=== PATIENT | female | born 1935 | race Caucasian/White ===

== ENCOUNTER 2017-11-02 07:28 | Observation (INO) | payer BC ==
[~2017-11-02] VITALS: Ht 172.7 cm; Wt 61.1 kg
[~2017-11-02 07:28] MED LIST: ALBU1AER9 INH; ASPI-461 PO; CALC250T8 PO; CHOL100010 PO; DIGO0.1267 PO; GABA1CAP PO; HYDR12.56 PO; HYDR1OIN TOP; LACTATED RINGER'S 1000ML 1,000 ML IV SCH; LISI20TA3 PO; METO50TA7 PO; OMEG12006 PO; PRED1SUS3
--- NOTE | 2017-11-02 08:21 | History & Physical Bridge Note ---
H&P Re-Evaluation Bridge Note: I have examined the patient, reviewed the History & Physical and in the interval since the performance of the History & Physical I have noted the following changes of clinical significance: No changes noted
--- NOTE | 2017-11-02 08:22 | Procedure Note ---
Pre-Mod Sedation Assessment General Date of Moderate Sedation: Nov 02, 2017. Review Cardiovascular: + bradycardia Abdomen: soft Lungs: lungs clear Airway Class: II Pre-Sedation Airway Assessment Oral Cavity: WNL Short Thick Neck: No Hx of Sleep Apnea: No Smoking Status: Never Smoker Mallampati Classification: Class II ASA Classification: Class II Procedure Planning Contraindications-for Mod Sed: None Yes Notes The planned sedation has been discussed with the patient and consent obtained. I have identified the patient, determined the appropriateness of sedation and have assessed the patient immediately prior to the procedure. All medicine(s) and interventions are by my order.
[2017-11-02] MEDS ORDERED: IBUP-103 PO (08:39)
[2017-11-02] MEDS ORDERED: ATOR-22 PO (08:39)
[2017-11-02 08:42] VITALS: BP 164/89; PULSE 82; TEMP 36.8; O2SAT 97; BMI 21.0
[2017-11-02] MEDS ORDERED: BUPIVACAINE 0.5 % 5 MG/1 ML MPF 30ML VIAL ONE (08:52)
[2017-11-02] MEDS ORDERED: LIDOCAINE HCL 1% 20 ML VIAL ONE (08:52)
[2017-11-02] MEDS ORDERED: BACITRACIN 50000 UNIT VIAL ONE (08:52)
[2017-11-02] MEDS ORDERED: MIDAZOLAM HCL 5 MG/ML 1 ML VIAL ONE ×2 (08:53→09:41)
[2017-11-02] MEDS ORDERED: FENTANYL CITRATE INJ 50 MCG/1 ML 2 ML VIAL ONE ×2 (08:54→09:40)
[2017-11-02] MEDS ORDERED: ALBUTEROL HFA 8 GM INHALER INH PRN (10:15)
--- NOTE | 2017-11-02 10:17 | Procedure Note ---
Post-Mod Sedation Assessment General Date of Moderate Sedation Nov 02, 2017. Vital Signs: Vital Signs Past 12 Hours Date Time Temp Pulse Resp B/P (MAP) Pulse Ox O2 Delivery O2 Flow Rate FiO2 11/02/17 08:42 36.8 82 18 164/89 (114) 97 Room Air Review - Discharge Criteria Vital Signs Stable: Yes Alert/Oriented/Conversant: Yes Returned to Baseline Mental St: Yes Nausea Absent/Minimal: Yes Pain/Discomfort/Absent/Minimal: Yes Normal/Baseline Respirations: Yes Active Bleeding?: No Pt Received D/C Instructions: N/A Prescriptions Given: None Specific Proced. D/C Criteria Distal Pulses Present (Cardiac: N/A Groin site assessed-Card Cath: N/A Voided Prior To Discharge: N/A Discharged Patients Adult Escort/Transportation: N/A
--- NOTE | 2017-11-02 10:17 | [facility] Post Operative Brief Note ---
Immediate Operative Summary Operative Date Nov 02, 2017. Pre-Operative Diagnosis intermittent chb Post-Operative Diagnosis same Procedure(s) Performed dual chamber rate responsive ppm under fluroscopic guidance with peripheral venogram Surgeon chery brenner Set Up Worker Surgeon(s) none Estimated Blood Loss <20cc Findings see official report Fluids (cc crystalloids) 300cc Specimens none Drains none Anesthesia 5mg versed and 125mcg fentantyl Complication(s) None Disposition PCU
--- NOTE | 2017-11-02 10:19 | Discharge Instructions ---
Discharge Instructions Date of Service Nov 02, 2017. Admission Reason for Admission: Complete Heart Block Discharge Discharge Diagnosis / Problem: intermittent complete heart block Discharge Goals Goal(s): Improve function Activity Recommendations Activity Limitations: as noted below Lifting Limitations: no more than 10 pounds (do not lift the left elbow over the left shoulder for 1 month; do not lift more than 10 pounds with the left arm for 2 weeks) Shower/Bathe: tomorrow Driving or Machine Use: resume 1 day after discharge . Instructions / Follow-Up Instructions / Follow-Up ACTIVITY RECOMMENDATIONS: * Do not raise affected arm over head for 4 weeks. SPECIAL CARE INSTRUCTIONS: * If bleeding occurs, apply direct pressure to area for 5 minutes. * Call your doctor if you have severe pain, fever, drainage or bleeding at site. * Keep dry for 24 hours. * Keep any scheduled doctor's appointment. * Implant Card - hand held device with website information given. SKIN IRRITATION: * You may experience some redness and/or swelling in the area where radiation was administered. If any skin irritation occurs, please contact your family physician. FOLLOW UP VISIT: Keep any scheduled doctor appointments. Current Hospital Diet Patient's current hospital diet: Regular Diet Discharge Diet Recommended Diet: Regular Diet Procedures Procedures Performed: dual chamber rate responsive ppm under fluroscopic guidance with peripheral venogram Pending Studies Studies pending at discharge: no Medical Emergencies . Who to Call and When: Medical Emergencies: If at any time you feel your situation is an emergency, please call 911 immediately. . Non-Emergent Contact Non-Emergency issues call your: Integration Assistant . . "Provider Documentation" section prepared by Lulú Randolph. . VTE Core Measure Inpt VTE Proph given/why not?: Treatment not indicated
--- NOTE | 2017-11-02 10:23 | Discharge Summary ---
Discharge Summary Date of Service Nov 02, 2017. 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 remote h/o breast cancer on right with radiation in 80s Procedures: dual chamber rate responsive permanent pacemaker with peripheral venogram under fluoroscopic guidance Medication Reconciliation Continued Medications: Albuterol Sulfate (Proair Hfa) 108 Mcg/ Aer 2 PUFFS INH QID PRN for Wheezing Aspirin (Aspirin) 81 Mg Tab 1 TAB PO QAM Atorvastatin (Lipitor) 20 Mg Tab 20 MG PO DAILY, TAB Calcium Citrate (Calcium Citrate) 250 Mg Tab 0.5 TAB PO QAM Cholecalciferol (Vitamin D) 1,000 Inter.unit Tab 1000 INTER.UNIT PO QAM, TAB Gabapentin (Neurontin) 100 Mg Cap 100 MG PO HS, CAP Hydrochlorothiazide (Hctz) 12.5 Mg Cap 12.5 MG PO Q2D, TAB Hydrocortisone (Topical) (Hydrocortisone) 1 % Oin 1 APPL TOP DAILY PRN for RASH Ibuprofen Tab (Advil) 200 Mg Tab 200 MG PO, TAB Lisinopril (Prinivil) 20 Mg Tab 0.5 TAB PO QAM, TAB Metoprolol Succ (Toprol Xl) (Toprol-Xl) 50 Mg Tabcr 50 MG PO BID, TAB [place]-3 Fatty Acids ([place]mar 3) 1 Cap Cap 1 CAP PO QAM Admission Information Physical Exam (per Admitting): aaox3, NAD Supple, No JVD Nrl S1/S2, no murmur cta b/l no w/r/r soft no edema b/l LE no focal deficits skin intact Hospital Course Pt admitted for elective permanent pacemaker due to intermittent CHB. Pt underwent procedure without any complications; monitored overnight and discharged home. Total time spent on discharge = 30 minutes This includes examination of the patient, discharge planning, medication reconciliation, and communication with other providers. Discharge Instructions ACTIVITY RECOMMENDATIONS: * Do not raise affected arm over head for 4 weeks. SPECIAL CARE INSTRUCTIONS: * If bleeding occurs, apply direct pressure to area for 5 minutes. * Call your doctor if you have severe pain, fever, drainage or bleeding at site. * Keep dry for 24 hours. * Keep any scheduled doctor's appointment. * Implant Card - hand held device with website information given. SKIN IRRITATION: * You may experience some redness and/or swelling in the area where radiation was administered. If any skin irritation occurs, please contact your family physician. FOLLOW UP VISIT: Keep any scheduled doctor appointments.
[2017-11-02] MEDS ORDERED: CEFAZOLIN 1000MG IV PUSH 5 ML IV SCH (10:30)
[2017-11-02 10:41] VITALS: BP 174/94; PULSE 79; TEMP 36.4; O2SAT 96; Ht 172.7 cm; Wt 61.1 kg
--- NOTE | 2017-11-02 11:53 | OPERATIVE REPORT ---
DATE OF OPERATION: 11/02/2017 PREOPERATIVE DIAGNOSIS: Intermittent complete heart block. POSTOPERATIVE DIAGNOSIS: Same. PROCEDURE: Dual chamber rate responsive permanent pacemaker under fluoroscopic guidance along with peripheral venogram. SURGEON: Dr. Lulú Randolph. PROGRAM TRAINER: None. ANESTHESIA: Monitored conscious sedation administered by Harley Barlow under my supervision. Start time 09:04 and end time 10:10. Total of 5 mg of Versed and 125 mcg of fentanyl. INTRAVENOUS FLUIDS: 200 mL. BLOOD LOSS: Less than 20 mL. ANTIBIOTICS: 1 g of Ancef. COMPLICATIONS: None. CONDITION: Stable. URINE OUTPUT: Not applicable. SPECIMENS: None. FINDINGS: See below. DRAINS: None. INDICATIONS: This is a 81-year-old female with a past medical history for right retinal artery occlusion in the fall of 2016, remote history of breast cancer on the right side status post radiation back in the and most recently telephone betting clerk that showed intermittent complete heart block. Due to her intermittent complete heart block, she was recommended dual chamber permanent pacemaker. CONSENT: Consent was obtained prior to the patient going into the electrophysiology lab. The patient was informed of risks, benefits and alternatives to the procedure. Risks include, but not limited to sudden cardiac , cardiac arrhythmias, cerebrovascular accident, myocardial infarction, injury to the blood vessels, chamber of the heart, the lungs, bleeding and infection. The patient understood these risks and agreed to the procedure as planned. Informed consent was obtained. DESCRIPTION OF THE PROCEDURE: The patient was brought into the electrophysiology lab in a fasting state. She was connected to continuous telephone betting clerk. A timeout was performed to ensure the patient's identity and procedure correctly. The patient was prepped and draped over the left infraclavicular space in normal surgical standard fashion. Moderate conscious sedation was given throughout the procedure for the patient's comfort level. [place] precautions were maintained throughout the procedure. 20 mL of 1% lidocaine and bupivacaine mixture were given in left deltopectoral groove. Incision made in the left deltopectoral groove. Blunt dissection was performed down to identify the cephalic vein; however, none could be identified. So, peripheral venogram using 10 mL of IV contrast diluted in 10 mL of saline followed by a 20 mL flush was used to identify the axillary vein. The axillary vein was then accessed with the needle stick and a guidewire was inserted without any resistance. An 8-[place] sheath was inserted over the guidewire. The dilator was removed and a second guidewire was inserted through the 8-[place] sheath. The sheath was removed, flushed and dilator reinserted over it and then it was reinserted over one of the guidewire. The guidewire and dilator were removed. The right ventricular pacing lead was then advanced into right ventricle and positioned into the right ventricular apex under fluoroscopic guidance. There was adequate pacing and sensing thresholds and no diaphragmatic stimulation with high output pacing. The 8-[place] sheath was peeled away and lead was fixated to pectoralis muscle using 0 silk suture. A second 8-[place] sheath was inserted over the retained guidewire without any resistance. The guidewire and dilator were removed. The right atrial lead was positioned into the right atrial appendage under fluoroscopic guidance. The initial position had low P waves and some high amplitude R waves. So, the lead was repositioned a little higher into the right atrial appendage under fluoroscopic guidance. There was adequate pacing and sensing thresholds and no diaphragmatic stimulation at high output pacing. The 8-[place] sheath was peeled away and lead was fixated to pectoralis muscle using 0 silk suture. An additional 5 mL of 1% lidocaine and bupivacaine mixture were given within the pectoralis fascia. Using blunt dissection within the pectoralis fascia over the pectoralis muscle, a pacemaker pocket was created. The pocket was flushed with copious amounts of bacitracin saline wash and inspected for hemostasis. The pulse generator was then attached to the leads, making sure that the pins were in appropriate position, passed the set screws and the set screws were all tightened. The pulse generator was then placed in the pocket, making sure that the leads were lying flat beneath the device. A stay stitch using 0 silk suture was used to secure the device in the pectoralis muscle. Rosalina stat was placed in the pocket due to some back oozing. Then, the incision was closed in a 3-layer fashion using 2-0 Vicryl interrupted suture followed by a 3-0 Vicryl interrupted suture followed by a 4-0 Monocryl running stitch and Dermabond followed by a pressure dressing was applied. EQUIPMENT: 1. Pulse generator is a [employer] Godwin Camara [id number], serial #[id number]. 2. Right atrial lead, Medtronic 5076-52 cm, serial #[id number]. 3. Right ventricular lead, Medtronic 5076-58 cm, serial #[id number]. INTRAOPERATIVE TESTIN. Right atrial lead: P waves 1.1 millivolts, impedance 540 ohms, threshold 0.8 volts at 2.6 milliamps. 2. Right ventricular lead: R waves 14.6 millivolts, impedance 951 ohms, threshold 0.5 volts at 0.7 milliamps. FINAL MEASUREMENTS THROUGH THE DEVICE: 1. Right atrial lead: P waves 1.1 millivolts, impedance 475 ohms, threshold 0.75 volts at 0.4 milliseconds. 2. Right ventricular lead: R waves 20 millivolts, impedance 665 ohms, threshold 0.75 volts at 0.4 milliseconds. FINAL PARAMETERS: MVP-R 60/120. Right atrial amplitude 3.5 volts, pulse width 0.4 milliseconds, and sensitivity 0.3 millivolts. Right ventricular amplitude 3.5 volts, pulse width 0.4 milliseconds, and sensitivity 0.9 millivolts. IMPRESSION: Successful implantation of a dual chamber rate responsive permanent pacemaker under fluoroscopic guidance along with peripheral venogram secondary to intermittent complete heart block. PLAN: Monitor the patient overnight, 12-lead ECG, and chest x-ray. She is not to lift the left elbow or left shoulder for 1 month. She cannot lift the left arm for more than 10 pounds for 2 weeks. She can shower tomorrow, let water run over the incision, and do not scrub it. She should follow up in our [facility] for device and wound check in 1 week's time. I attest to the content of the Intraoperative Record and any orders documented therein. Any exception s are noted below.
[2017-11-02 12:00] VITALS: BP 168/89; PULSE 75; TEMP 36.6; O2SAT 96; O2SAT 97
[2017-11-02] MEDS ORDERED: HYDROCHLOROTHIAZIDE 25 MG TAB PO SCH (12:00)
[2017-11-02] MEDS ORDERED: IV FLUIDS COMPLETED PRN (12:45)
[2017-11-02 16:00] VITALS: O2SAT 96
[2017-11-02 16:30] VITALS: BP 163/83; PULSE 80; TEMP 36.7; O2SAT 95
[2017-11-02 19:26] VITALS: BP 153/81; PULSE 80; TEMP 36.8; O2SAT 94
[2017-11-02] MEDS: METOPROLOL SUCC 50MG EXT REL TAB PO SCH (20:32)
[2017-11-02] MEDS: ACETAMINOPHEN 325 MG TAB PO PRN (20:33)
[2017-11-02] MEDS ORDERED: GABAPENTIN 100 MG CAP PO SCH (21:00)
[2017-11-03 00:10] VITALS: BP 151/88; PULSE 74; TEMP 36.5; O2SAT 99
[2017-11-03 03:53] VITALS: BP 116/75; PULSE 76; TEMP 36.9; O2SAT 99
--- NOTE | 2017-11-03 07:20 | DIAGNOSTIC IMAGING REPORT ---
CHEST 2 VIEWS ROUTINE HISTORY: 81 years-old Female EXACT TIME ORDERED Evaluate for pneumothorax and lead placement status post placement of a left pectoral pacer. COMPARISON: Chest CT 09/02/2016 TECHNIQUE: PA and lateral views of the chest FINDINGS: Cardiac silhouette is within normal limits. There is unchanged biapical, right upper lobe and right perihilar pleural-parenchymal scarring with postsurgical changes. Unchanged small right pleural effusion with right basilar scarring. Subsegmental scarring/atelectasis of left lung base is also unchanged. Cardiac silhouette is upper limits of normal in size. Status post placement of a left subclavian pacer device with leads overlying the right atrium and right ventricle. There is no evidence of a postprocedural pneumothorax. The leads appear intact. Bones of the chest appear grossly intact. Compression deformity of what appears to be L1 is age indeterminate. IMPRESSION: 1. Status post placement of a left subclavian pacer device with leads overlying the right atrium and right ventricle. No postprocedural pneumothorax identified. 2. Unchanged scarring of the lung apices, right perihilar distribution and right lung base with small right pleural effusion. The above report was generated using voice recognition software. It may contain grammatical, syntax or spelling errors. Electronically signed by: Jesse Mena M.D. 11/03/2017 7:18 AM Dictated Date/Time: 11/03/2017 7:16 AM
[2017-11-03] MEDS: METOPROLOL SUCC 50MG EXT REL TAB PO SCH (07:40)
[2017-11-03 07:55] VITALS: BP 149/88; PULSE 88; TEMP 36.7; O2SAT 96
[2017-11-03 08:00] VITALS: O2SAT 96
[2017-11-03] MEDS ORDERED: LISINOPRIL 10 MG TAB PO SCH (09:00)
[2017-11-03] MEDS ORDERED: ASPIRIN 81 MG ECTAB PO SCH (09:00)
[2017-11-03] MEDS ORDERED: CHOLECALCIFEROL 1000 INTER.UNIT TAB PO SCH (09:00)
[2017-11-03] MEDS ORDERED: ATORVASTATIN 20 MG TAB PO SCH (09:00)
[2017-11-03 10:08] VITALS: BP 149/88; PULSE 88; TEMP 36.7; O2SAT 96
[2017-11-03] MEDS: ACETAMINOPHEN 325 MG TAB PO PRN (10:21)
--- NOTE | 2017-11-03 10:33 | Cardiology Follow-Up ---
Subjective Subjective Date of Service: Nov 03, 2017. Pt evaluation today including: conversation w/ patient, physical exam, lab review Pain: minimal at incision site Review of Systems Constitutional: No fatigue Respiratory: No shortness of breath, No dyspnea on exertion Cardiac: No chest pain, No edema, No palpitations Objective Vital Signs Last Vital Signs Documentation Date Time Temp Pulse Resp B/P (MAP) Pulse Ox O2 Delivery O2 Flow Rate FiO2 11/03/17 10:08 36.7 88 18 96 Room Air 11/03/17 07:55 149/88 (108) Physical Exam: General Appearance: WD/WN, no apparent distress Eyes: bilateral eyes PERRL, bilateral eyes EOMI Neck: supple, no JVD Respiratory/Chest: lungs clear, normal breath sounds Cardiovascular: regular rate, rhythm, no edema, no JVD, no murmur Abdomen: soft Neurologic/Psychiatric: alert, oriented x 3 Skin: normal color (left pectoral incision intact, no hematoma mild ecchymosis) , warm/dry Assessment and Plan Impression: 1. Intermittent complete heart block s/p dual chamber ppm 11/02/2017 2. Retinal artery occlusion fall 2016 3. h/o breast cancer Plan: -Ok for discharge home today -Pt not allowed to lift the left elbow over the left shoulder for 1 month or lift the more than 10 pounds with the left arm for 2 weeks -F/u in our office for device and wound check in 1 week Discharge planning: home Medications: Medications Administered Medications (Trade) Dose Ordered Sig/Talya Route Start Time Stop Time Status Last Admin Dose Admin Midazolam HCl (Versed Inj) 5 mg STK-MED ONCE .ROUTE 11/02/17 08:53 11/02/17 08:54 DC 11/02/17 08:53 5 MG Fentanyl Citrate (Fentanyl Inj) 100 mcg STK-MED ONCE .ROUTE 11/02/17 08:54 11/02/17 08:55 DC 11/02/17 08:54 100 MCG Fentanyl Citrate (Fentanyl Inj) 100 mcg STK-MED ONCE .ROUTE 11/02/17 09:40 11/02/17 09:41 DC 11/02/17 09:40 25 MCG Cefazolin Sodium 5 ml @ 1.667 mls/ min TODAY@1030 IV 11/02/17 10:30 11/03/17 10:29 11/02/17 10:26 1.667 MLS/MIN Lactated Ringer's 1,000 ml @ 15 mls/hr Q24H IV 11/02/17 06:00 11/03/17 05:59 DC 11/02/17 06:00 15 MLS/HR Acetaminophen (Tylenol Tab) 650 mg Q4H PRN PO 11/02/17 10:15 12/02/17 10:14 11/03/17 10:21 650 MG Aspirin (Ecotrin Tab) 81 mg QAM PO 11/03/17 09:00 12/03/17 08:59 11/03/17 07:41 81 MG Atorvastatin Calcium (Lipitor Tab) 20 mg DAILY PO 11/03/17 09:00 12/03/17 08:59 11/03/17 07:42 20 MG Cholecalciferol (Vitamin D Tab) 1,000 inter.unit QAM PO 11/03/17 09:00 12/03/17 08:59 11/03/17 07:41 1,000 INTER.UNIT Hydrochlorothiazide (Hydrochlorothiazide Tab) 12.5 mg Q2D@0800 PO 11/02/17 12:00 12/02/17 11:59 11/02/17 12:49 12.5 MG Lisinopril (Zestril Tab) 10 mg QAM PO 11/03/17 09:00 12/03/17 08:59 11/03/17 07:41 10 MG Metoprolol Succinate (Toprol Xl Tab) 50 mg BID PO 11/02/17 21:00 12/02/17 20:59 11/03/17 07:40 50 MG Lab Results: Telemetry:SR ECG: SR Pacemaker Interrogation Today: Stable lead testing from implant CXR: No PTX RA & RV leads in place
== END 2017-11-03 11:09 | disposition home or self-care (01) ==
LOC: C.ACU 07:28 → ENRESERV 09:56 → C.2T 10:15
PROVIDERS: ADMIT Internal Medicine; ATTEND Internal Medicine
DX: I44.2 Atrioventricular block, complete (principal); I65.29 Occlusion and stenosis of unspecified carotid artery; H34.11 Central retinal artery occlusion, right eye; Z85.3 Personal history of malignant neoplasm of breast; Z92.3 Personal history of irradiation; Z85.828 Personal history of other malignant neoplasm of skin; Z79.82 Long term (current) use of aspirin; J44.9 Chronic obstructive pulmonary disease, unspecified; Z87.01 Personal history of pneumonia (recurrent); Z83.3 Family history of diabetes mellitus; Z82.49 Family history of ischemic heart disease and other diseases of the circulatory system; Z82.0 Family history of epilepsy and other diseases of the nervous system; Z81.8 Family history of other mental and behavioral disorders; Z80.6 Family history of leukemia; Z91.81 History of falling

== ENCOUNTER → 2017-12-13 | Outpatient (CLI) | payer BC ==
[~2017-12-13] MED LIST changes: +ATOR-22 PO; -DIGO0.1267 PO; +IBUP-103 PO; -LACTATED RINGER'S 1000ML 1,000 ML IV SCH; -PRED1SUS3
--- NOTE | 2017-12-13 14:47 | MAMMOGRAPHY REPORT ---
UNILATERAL LEFT DIGITAL SCREENING MAMMOGRAM TOMOSYNTHESIS WITH CAD: 12/13/2017 CLINICAL HISTORY: Asymptomatic. Personal history of breast cancer. TECHNIQUE: Left b left breast reast tomosynthesis in addition to standard 2D mammography was perform ed. Additional left MLO and exaggerated medial CC 2-D views were performed to include more medial an d posterior tissue Current study was also evaluated with a Computer Aided Detection (CAD) system. COMPARISON: Comparison is made to exams dated: 12/11/2016 mammogram, 12/09/2015 mammogram, 12/07/2014 ma mmogram, 11/16/2013 mammogram, 11/15/2012 mammogram, and 11/12/2011 mammogram - [facility]. BREAST COMPOSITION: The tissue of the left breast is heterogeneously dense, which may obscure small masses. FINDINGS: A pacemaker projects over the left pectoralis muscle on the first MLO view. A linear scar marker overlies the medial left breast. There are benign-appearing rodlike and coarse calcifications . No new suspicious mass, architectural distortion or cluster of microcalcifications is seen. IMPRESSION: ACR BI-RADS CATEGORY 1: NEGATIVE There is no mammographic evidence of malignancy. A 1 year screening mammogram is recommended. The pa tient will receive written notification of the results. Approximately 10% of breast cancers are not detected with mammography. A negative mammographic report should not delay biopsy if a clinically suggestive mass is present. Elvie Restrepo M.D. ay/:12/13/2017 12:39:15 Manager Decision Support: Carlee Thornton, [facility] letter sent: Normal 1/2 BI-RADS Code: ACR BI-RADS Category 1: Negative
== END | disposition home or self-care (01) ==
LOC: C.MAMM 09:47
PROVIDERS: ATTEND Family Medicine
DX: Z12.31 Encounter for screening mammogram for malignant neoplasm of breast (principal)

== ENCOUNTER 2020-04-18 07:52 | Inpatient (IN) ==
--- NOTE | 2020-04-18 08:19 | Emergency Department Note ---
Impression & Plan CHF (congestive heart failure), Idiopathic cardiomyopathy, HTN (hypertension), Acute hypoxemic respiratory failure, Chronic bilateral pleural effusions ED Provider Note CHIEF COMPLAINT: Shortness of breath HISTORY OF PRESENTING ILLNESS: This is an 84-year-old female who presents to the emergency department with past medical history significant for idiopathic cardiomyopathy, complete heart block with a pacemaker, hypertension and hyperlipidemia, who presents to the emergency department by private vehicle with complaints of shortness of breath for the past 5 days. The patient states that her feelings of shortness of breath have been intermittent, but got much worse last night, she states "I did not sleep at all last night because I was afraid I would stop breathing, I felt like I had to remind myself to breathe. I was afraid I was going to if I went to sleep." She states she feels that her heart is racing at times. The shortness of breath is worse when she lies flat, better when she sits up or if she gets up and walks around, she denies any worsening of her shortness of breath with exertion. Patient states she has had some associated nausea, but denies any vomiting, diarrhea, bloody or black stools, or abdominal pain. She rates the nausea discomfort a 3/10. She denies any chest pain or back pain. She denies any cough, URI symptoms, fevers or chills, sick contacts or exposures concerning for COVID-19. She denies any swelling or pain in her legs. She denies any headaches, dizziness, or syncope. She denies any hemoptysis. REVIEW OF SYSTEMS: A complete 10 point review of systems was reviewed with the patient with pertinent positives and negatives as per history of present illness. All else were negative. PAST MEDICAL HISTORY: Idiopathic cardiomyopathy, complete heart block s/p pacemaker, hypertension, hyperlipidemia SOCIAL HISTORY: Lives at home with her , denies tobacco use ALLERGIES: Reviewed in chart PHYSICAL EXAM: CONSTITUTIONAL: Pleasant and cooperative. Nontoxic-appearing and in no acute distress, but appears slightly anxious. Well appearing and well nourished. HEENT: Normocephalic, atraumatic. PERRL, EOMI. Pharynx normal. NECK: Supple, full active range of motion without discomfort. No cervical adenopathy. RESPIRATORY: Diminished in the bases, but otherwise clear to auscultation bilaterally with no wheezing, crackles, rhonchi or stridor. Equal expansion bilaterally. CARDIOVASCULAR: Tachycardic, regular rhythm with no murmurs, rubs or gallops. Normal peripheral perfusion, 2+ distal pulses in all 4 extremities. No pitting edema. GASTROINTESTINAL: Soft, nontender, nondistended. No palpable masses or HSM. Bowel sounds present in all quadrants. MUSCULOSKELETAL: No tenderness or swelling in the calves. Negative Homans sign bilaterally. Full range of motion of all joints without discomfort. INTEGUMENTARY: No rash or other significant dermatologic conditions noted. NEUROLOGIC: Alert and oriented X 4 with normal affect. Normal strength and sensation in all 4 extremities. Normal speech. Normal gait observed. ED COURSE AND MEDICAL DECISION MAKING: CC: Patient presenting with complaint of shortness of breath DIFFERENTIAL DIAGNOSIS: Includes, but not limited to acute coronary syndrome, CHF/pulmonary edema, pulmonary embolism, pneumothorax, pericarditis, myocarditis, cardiac dysrhythmia, anxiety, pneumonia, among others. INTERPRETATION OF LABS: No leukocytosis, no anemia, normal platelets, hypergly cemia and mild hyponatremia/hypochloremia, no other significant electrolyte abnormalities, normal renal function, elevated T bili, otherwise normal liver enzymes. Coagulation factors within normal limits. VBG unremarkable. Significantly elevated pro-BNP. Marginally detectable troponin IMAGING: XR chest 1V portable CLINICAL HISTORY: 84 years-old Female presenting with Dyspnea. TECHNIQUE: Portable upright AP view of the chest was obtained. COMPARISON: 11/03/2017. FINDINGS: Left subclavian pacer with leads to the right atrium and right ventricular apex. Atherosclerosis of the aortic arch. Cardiac silhouette enlarged. Pulmonary vascular prominence. Heterogeneity of lung parenchyma. Extensive bibasilar and infrahilar opacities, right greater than left. Small bilateral pleural effusion s. No pneumothorax. Osseous structures normal. Upper abdomen normal. IMPRESSION: 1. Cardiomegaly with volume overload. 2. Bilateral pleural effusions and bibasilar atelectasis or consolidation. Un derlying infection not excluded. 3. Heterogeneity of underlying lung parenchyma suggest emphysema. EKG: Shows normal sinus rhythm with a rate of 97 bpm, left axis deviation, left bundle branch block, T wave inversions in the lateral leads appears worse when compared to previous EKG from 11/02/2017 by my interpretation. MEDICATION RECONCILIATION: I attest that I have personally reviewed the tenisha dunlap's current medication list. INITIAL VITAL SIGNS REVIEW: I reviewed the patient's initial vital signs and interpret them as follows: T: Afebrile; BP: Hypertensive; HR: Tachycardic; RR: Within normal limits; Pulse Ox: Within normal limits on room air. Blood pressure screening: The patient was found to have an elevated blood pressure and was referred to the inpatient team for further management. MDM SUMMARY: Patient was evaluated at bedside, history and physical exam performed. Patient is alert and oriented, in no acute distress, but appears slightly anxious, resting on the stretcher. She is afebrile and nontoxic-appearing, but is noted to be hypertensive and tachycardic. Patient was noted to be 90-91% on room air, she was placed on 2 L nasal cannula by myself. Lungs are diminished in the bases, but otherwise clear. Patient appears to have slightly labored breathing, but this appears to be improved while she is talking and she is able to speak in full sentences. No tachypnea or accessory muscle use. Cardiac monitoring: An order was placed for continuous cardiac monitoring. The monitor shows a rate of 112 bpm with sinus tachycardia rhythm. Heart sounds are normal. Normal peripheral perfusion, no edema. No calf tenderness. No travel or exposures concerning for COVID-19. Orders were placed at bedside for labs, UA, IV placement, EKG and chest x-ray to evaluate for shortness of breath. Patient discussed with Dr. Crouch, who agrees with my assessment, plan, and dis position. Labs and imaging reviewed as above, labs noting hyperglycemia and mild hyponatremia, and elevated T bili of unclear etiology, but other liver enzymes are normal. She is not acidotic, CO2 is normal. Marginally detectable troponin and a significantly elevated pro-BNP. EKG shows some worsening of T wave inversions when compared to previous. Chest x-ray appears consistent with volume overload, I suspect congestive heart failure as cause of her shortness of breath. Patient was given 40 mg IV Lasix. She has started to have good urine output, and has remained hemodynamically stable. Patient reassessed multiple times throughout ED stay, she states that her shortness of breath is feeling somewhat better. She remains on 2 L nasal cannula with sats of 94 to 95%. Spoke on the phone with the [facility] hospitalist team, who agreed to evaluate the patient for admission. The patient was updated on all results and plan for admission, all questions were answered at this time and she was comfortable with this plan. The chart was completed utilizing [employer] Speech voice recognition software. Grammatical errors, random word insertions, pronoun errors, and incomplete sentences are an occasional consequence of this system due to software limitations, ambient noise, and hardware issues. Any formal questions or concerns about the content, text, or information contained within the body of this dictation should be directly addressed to the nurse practitioner for clarification. Past Med/Surg History Medical History (Updated 04/18/20 @ 15:59 by JOSE Reyes) Acute hypoxemic respiratory failure (Acute) Breast cancer Cardiac pacemaker in situ Carotid stenosis, non-symptomatic Central retinal artery occlusion Chronic bilateral pleural effusions (Acute) Complete heart block H/O sigmoidoscopy HTN (hypertension) (Acute) Idiopathic cardiomyopathy (Acute) Radiation pneumonitis Surgical History H/O right mastectomy History of cardiac cath Family History Mother Cancer MM Father Parkinson disease Brother Hypertension Social History Preferred Language: Romanian Communication Ability: Effective Golf Course Designer Required: No Beliefs That Will Affect Care: None Current Living Situation: Spouse Other Information That Helps Us Care for You: No Feels Safe at Home: Yes Safety Concerns: Feels Safe At This Time Smoking Status: Never smoker Do You Dip or Chew Tobacco: No ; Second Hand Exposure: No ; Tobacco Cessation Education Requested by Patient: No Hx Alcohol Use: Yes Alcohol type: wine Hx Substance Use: No Allergies Allergies Allergy/AdvReac Type Severity Reaction Status Date / Time oxycodone Allergy Unknown "MADE ME Verified 04/18/20 08:44 FEEL BAD" codeine AdvReac Unknown VOMITING Verified 04/18/20 08:44 Home Meds Home Medications Medication Instructions Recorded Confirmed ascorbic acid (vitamin C) [Vitamin 500 mg PO DAILY 04/18/20 04/18/20 C] aspirin [Aspirin Low Dose] 81 mg PO DAILY 04/18/20 04/18/20 atorvastatin 20 mg PO HS 04/18/20 04/18/20 calcium carbonate-vitamin D3 1 tab PO BID 04/18/20 04/18/20 [Calcium 500 + D] cholecalciferol (vitamin D3) 1,000 unit PO DAILY 04/18/20 04/18/20 [Vitamin D3] gabapentin 100 mg PO HS 04/18/20 04/18/20 hydrochlorothiazide 12.5 mg PO Q OTHER DAY 04/18/20 04/18/20 lisinopril 10 mg PO DAILY 04/18/20 04/18/20 metoprolol succinate 100 mg PO QAM 04/18/20 04/18/20 Results & Data (ED) Vital Signs Vital Signs - 24 hr 04/18/20 07:56 04/18/20 08:11 04/18/20 08:12 Temperature 36.8 C Temperature Source Oral Pulse Rate 116 H Pulse Rate from SpO2 Sensor Respiratory Rate 20 Respiratory Effort / Characteristics Non-Labored Non-Labored Respiratory Depth Normal Respiratory Pattern Tachypnea Blood Pressure 173/110 H Blood Pressure Mean 131 Pulse Oximetry 91 Oxygen Delivery Method Room Air Nasal Cannula Nasal Cannula Sepsis Recent Fever Within 48 Hours No Sepsis New/Unexplained Change in Mental Status No Sepsis Action Taken by Nursing No Action Required 04/18/20 08:20 04/18/20 08:44 04/18/20 09:00 Temperature Temperature Source Pulse Rate 94 H 90 Pulse Rate from SpO2 Sensor 94 H 90 Respiratory Rate 25 H 21 Respiratory Effort / Characteristics Respiratory Depth Respiratory Pattern Blood Pressure Blood Pressure Mean Pulse Oximetry 93 92 Oxygen Delivery Method Nasal Cannula Sepsis Recent Fever Within 48 Hours Sepsis New/Unexplained Change in Mental Status Sepsis Action Taken by Nursing 04/18/20 09:34 04/18/20 10:00 04/18/20 10:10 Temperature Temperature Source Pulse Rate 106 H 99 H 98 H Pulse Rate from SpO2 Sensor 107 H 99 H 98 H Respiratory Rate 18 Respiratory Effort / Characteristics Respiratory Depth Respiratory Pattern Blood Pressure 167/109 H Blood Pressure Mean 140 Pulse Oximetry 93 94 Oxygen Delivery Method Sepsis Recent Fever Within 48 Hours Sepsis New/Unexplained Change in Mental Status Sepsis Action Taken by Nursing 04/18/20 10:30 04/18/20 11:00 04/18/20 11:30 Temperature Temperature Source Pulse Rate 109 H 111 H 107 H Pulse Rate from SpO2 Sensor 110 H 111 H 109 H Respiratory Rate 20 Respiratory Effort / Characteristics Respiratory Depth Respiratory Pattern Blood Pressure Blood Pressure Mean Pulse Oximetry 94 95 Oxygen Delivery Method Sepsis Recent Fever Within 48 Hours Sepsis New/Unexplained Change in Mental Status Sepsis Action Taken by Nursing Laboratory Data Result diagrams: 04/18/20 08:32 04/18/20 08:32 Lab Results 04/18/20 04/18/20 04/18/20 Range/Units 08:32 08:32 08:32 WBC 7.35 (4.8-10.8) K/uL RBC 4.72 (4.2-5.4) M/uL Hgb 15.0 (12.0-16.0) g/dL Hct 43.8 (37-47) % MCV 92.8 (80-100) fL MCH 31.8 (25-34) pg MCHC 34.2 (32-36) g/dL RDW Std Deviation 46.3 (36.4-46.3) fL RDW Coeff of Teresa 13.6 (11.5-14.5) % Plt Count 244 (130-400) K/uL MPV 8.9 (7.4-10.4) fL Immature Gran % (Auto) 0.3 % Neut % (Auto) 89.6 % Lymph % (Auto) 4.9 % Phillips % (Auto) 4.8 % Eos % (Auto) 0.3 % Baso % (Auto) 0.1 % Immature Gran # (Auto) 0.02 (0.00-0.02) K/uL Neut # (Auto) 6.59 H (1.4-6.5) K/uL Lymph # (Auto) 0.36 L (1.2-3.4) K/uL Phillips # (Auto) 0.35 (0.11-0.59) K/uL Eos # (Auto) 0.02 (0-0.5) K/uL Baso # (Auto) 0.01 (0-0.2) K/uL PT 10.8 (9.0-12.0) Seconds INR 1.0 (0.9-1.1) APTT 25.1 (21.0-31.0) Seconds PTT Ratio 0.9 VBG pH (7.36-7.41) VBG pCO2 (38-50) mmHg VBG pO2 mmHg VBG HCO3 mmol/L VBG O2 Saturation % VBG Base Excess mEq/L Barometric Pressure mm/Hg Sodium 131 L (136-145) mmol/L Potassium 4.3 (3.5-5.1) mmol/L Chloride 97 L (98-107) mmol/L Carbon Dioxide 25 (21-32) mmol/L Anion Gap 9.0 (3-11) BUN 17 (7-18) mg/dl Creatinine 0.82 (0.6-1.2) mg/dl Est Cr Clr Drug Dosing Not Reportable Est GFR ( Amer) 77.2 Est GFR (Non-Af Amer) 66.6 BUN/Creatinine Ratio 20.5 H (10-20) Glucose 182 H (70-99) mg/dl Calcium 8.5 (8.5-10.1) mg/dl Total Bilirubin 1.7 H (0.2-1) mg/dl AST 30 (15-37) U/L ALT 29 (12-78) U/L Alkaline Phosphatase 53 (45-117) U/L Troponin I 0.030 (0-0.045) ng/ml NT-Pro-B Natriuret Pep (0-1800) pg/ml Total Protein 7.5 (6.4-8.2) gm/dl Albumin 4.0 (3.4-5.0) gm/dl Globulin 3.5 (2.5-4.0) gm/dl Albumin/Globulin Ratio 1.1 (0.9-2) TSH (0.300-4.500) uIu/ml 04/18/20 04/18/20 04/18/20 Range/Units 08:32 09:41 09:41 WBC (4.8-10.8) K/uL RBC (4.2-5.4) M/uL Hgb (12.0-16.0) g/dL Hct (37-47) % MCV (80-100) fL MCH (25-34) pg MCHC (32-36) g/dL RDW Std Deviation (36.4-46.3) fL RDW Coeff of Teresa (11.5-14.5) % Plt Count (130-400) K/uL MPV (7.4-10.4) fL Immature Gran % (Auto) % Neut % (Auto) % Lymph % (Auto) % Phillips % (Auto) % Eos % (Auto) % Baso % (Auto) % Immature Gran # (Auto) (0.00-0.02) K/uL Neut # (Auto) (1.4-6.5) K/uL Lymph # (Auto) (1.2-3.4) K/uL Phillips # (Auto) (0.11-0.59) K/uL Eos # (Auto) (0-0.5) K/uL Baso # (Auto) (0-0.2) K/uL PT (9.0-12.0) Seconds INR (0.9-1.1) APTT (21.0-31.0) Seconds PTT Ratio VBG pH 7.40 (7.36-7.41) VBG pCO2 46 (38-50) mmHg VBG pO2 52 mmHg VBG HCO3 28 mmol/L VBG O2 Saturation 85.5 % VBG Base Excess 2.2 mEq/L Barometric Pressure 740.4 mm/Hg Sodium (136-145) mmol/L Potassium (3.5-5.1) mmol/L Chloride (98-107) mmol/L Carbon Dioxide (21-32) mmol/L Anion Gap (3-11) BUN (7-18) mg/dl Creatinine (0.6-1.2) mg/dl Est Cr Clr Drug Dosing Est GFR ( Amer) Est GFR (Non-Af Amer) BUN/Creatinine Ratio (10-20) Glucose (70-99) mg/dl Calcium (8.5-10.1) mg/dl Total Bilirubin (0.2-1) mg/dl AST (15-37) U/L ALT (12-78) U/L Alkaline Phosphatase (45-117) U/L Troponin I (0-0.045) ng/ml NT-Pro-B Natriuret Pep 9281 H (0-1800) pg/ml Total Protein (6.4-8.2) gm/dl Albumin (3.4-5.0) gm/dl Globulin (2.5-4.0) gm/dl Albumin/Globulin Ratio (0.9-2) TSH 1.310 (0.300-4.500) uIu/ml Administered Medications Discontinued Medications Furosemide (Lasix) 40 mg IV NOW STA Stop: 04/18/20 09:35 Last Admin: 04/18/20 10:08 Dose: 40 mg Documented by: [id number] Discharge Plan Visit Data *Final* Discharge Date/Time: 04/18/20 12:41 Chief Complaint: Shortness of Breath/Dyspnea Stated Complaint: SOB ED Provider: Homer Crouch ED Midlevel Provider: Ling Dao Discharge Problem: CHF (congestive heart failure), Idiopathic cardiomyopathy, HTN (hypertension), Acute hypoxemic respiratory failure, Chronic bilateral pleural effusions Patient Disposition: Admitted As Inpatient Discharge Instructions Interventions: ED Discharge Assessment Last Done: 04/18/20 12:41 Discharge Problem: CHF (congestive heart failure) Qualifiers: Heart failure type: unspecified Heart failure chronicity: acute Qualified Code(s): I50.9 - Heart failure, unspecified HTN (hypertension) Qualifiers: Hypertension type: unspecified Qualified Code(s): I10 - Essential (primary) hypertension
[2020-04-18 08:41] LABS: Basophils # (auto) 0.01 K/uL (0-0.2); Basophils % (auto) 0.1 %; Eosinophils # (auto) 0.02 K/uL (0-0.5); Eosinophils % (auto) 0.3 %; Hematocrit (blood only) 43.8 % (37-47); Immature Granulocytes # (auto) 0.02 K/uL (0.00-0.02); Immature Granulocytes % (auto) 0.3 %; Lymphocytes # (auto) 0.36 K/uL (1.2-3.4); Lymphocytes % (auto) 4.9 %; Mean Corpuscular Hemoglobin 31.8 pg (25-34); Mean Corpuscular Hgb Conc 34.2 g/dL (32-36); Mean Corpuscular Volume 92.8 fL (80-100); Mean Platelet Volume 8.9 fL (7.4-10.4); Monocytes # (auto) 0.35 K/uL (0.11-0.59); Monocytes % (auto) 4.8 %; Neutrophils # (auto) 6.59 K/uL (1.4-6.5); Neutrophils % (auto) 89.6 %; Platelet Count 244 K/uL (130-400); RDW Coefficient of Variation 13.6 % (11.5-14.5); RDW Standard Deviation 46.3 fL (36.4-46.3); Red Blood Count 4.72 M/uL (4.2-5.4); White Blood Count 7.35 K/uL (4.8-10.8)
--- NOTE | 2020-04-18 08:41 | XRay Report ---
XR chest 1V portable CLINICAL HISTORY: 84 years-old Female presenting with Dyspnea. TECHNIQUE: Portable upright AP view of the chest was obtained. COMPARISON: 11/03/2017. FINDINGS: Left subclavian pacer with leads to the right atrium and right ventricular apex. Atherosclerosis of t he aortic arch. Cardiac silhouette enlarged. Pulmonary vascular prominence. Heterogeneity of lung par enchyma. Extensive bibasilar and infrahilar opacities, right greater than left. Small bilateral pleur al effusions. No pneumothorax. Osseous structures normal. Upper abdomen normal. IMPRESSION: 1. Cardiomegaly with volume overload. 2. Bilateral pleural effusions and bibasilar atelectasis or consolidation. Underlying infection not excluded. 3. Heterogeneity of underlying lung parenchyma suggest emphysema. ACT 112: Negative or not required by law. Electronically signed by: Jarek Ya M.D. 04/18/2020 8:40 AM
[2020-04-18 08:59] LABS: Blood Urea Nitrogen 17 mg/dl (7-18); Carbon Dioxide 25 mmol/L (21-32); Chloride 97 mmol/L (98-107); Potassium 4.3 mmol/L (3.5-5.1); Sodium 131 mmol/L (136-145)
[2020-04-18 09:00] LABS: Aspartate Aminotransferase 30 U/L (15-37); BUN Creatinine Ratio 20.5 (10-20); Calcium 8.5 mg/dl (8.5-10.1); Est GFR (African American) 77.2; Est GFR (Non-African American) 66.6; Glucose 182 mg/dl (70-99)
[2020-04-18 09:04] LABS: Alanine Aminotransferase 29 U/L (12-78); Albumin Globulin Ratio 1.1 (0.9-2); Alkaline Phosphatase 53 U/L (45-117); Bilirubin,Total 1.7 mg/dl (0.2-1); Globulin 3.5 gm/dl (2.5-4.0); Total Protein 7.5 gm/dl (6.4-8.2)
[2020-04-18 09:07] LABS: Partial Thromboplastin Ratio 0.9; Partial Thromboplastin Time 25.1 Seconds (21.0-31.0); Prothrombin Time 10.8 Seconds (9.0-12.0)
[2020-04-18] MEDS ORDERED: FUROSEMIDE 40 MG/4 ML VIAL IV STA (09:34)
[2020-04-18 10:02] LABS: Base Excess VBG 2.2 mEq/L; Oxygen Saturation VBG 85.5 %; pH VBG 7.4 (7.36-7.41)
--- NOTE | 2020-04-18 12:24 | History & Physical Report ---
Date of Service April 18, 2020 Assessment & Plan (1) CHF (congestive heart failure): (2) Idiopathic cardiomyopathy: (3) Cardiac pacemaker in situ: (4) Complete heart block: Patient with SOB, AIKEN, PND, and new onset CHF with history of idiopathic cardiomyopathy, complete heart block, and pacemaker in situ. Admit to Tele. BNP elevated in the ED. Troponin detectable but not elevated. CXR shows signs of volume overload. Lasix 40 mg IV given in the ED. Renal function within normal. Plan for another dose of IV Lasix 40 mg this evening. Strict I&Os Trend troponin Repeat CXR in AM. Continue supplemental O2 as needed to maintain SaO2 >90% Recheck CBC, BMP in AM Check TSH Cardiology consultation due to history of cardiomyopathy with new onset CHF (5) HTN (hypertension): Continue home medications Monitor BP. If no improvement with diuresis, may need additional BP control (6) DVT prophylaxis: Heparin History of Present Illness Chief Complaint: CHF Primary Care Provider: Brian Blanton DO Triston is an 84 yo female with history of idiopathic cardiomyopathy without history of CHF, chronic bundle branch block, radiation pneumonitis s/p breast cancer, asymptomatic carotid stenosis, and HTN who presented to the ED with worsening SOB x 5 days. The patient initially started to noticed that she was having a hard time catching her breath and was getting SOB with exertion, but the last 2 nights, she also couldn't sleep or lay down in bed because of the SOB. She has had some mild nausea associated with these symptoms as well but no coughing, congestion, fever, sweats/chills, diarrhea, or chest pain. No edema in her legs. She hasn't weighed herself recently, so unsure of any weight gain. No changes in her diet. She has been doing well at avoiding salt intake since she hasn't been able to eat out. Since presentation to the ED, patient's BP has been elevated up to 173/110. O2 saturation decreased- started on 2 L via nasal cannula. Sats improved. BNP noted to be elevated at 9281. Troponin detectable but not elevated. EKG shows LBBB & QTC 546. Chest X-Ray showed cardiomegaly with signs of volume overload and b/l pleural effusions. She is currently sitting up in bed with mildly labored breathing. She continues to have SOB. 40 mg IV Lasix given in the ED. Patient is urinating often. Last outpatient Echo was completed 10/08/17. It showed EF 45-50%, mild MR, mild TR, and septal motion abnormality consistent with LBBB. Allergies Allergy/AdvReac Type Severity Reaction Status Date / Time oxycodone Allergy Unknown "MADE ME Verified 04/18/20 08:44 FEEL BAD" codeine AdvReac Unknown VOMITING Verified 04/18/20 08:44 Home Medications Home Medications Medication Instructions Recorded Confirmed Type ascorbic acid (vitamin C) [Vitamin 500 mg PO DAILY 04/18/20 04/18/20 History C] aspirin [Aspirin Low Dose] 81 mg PO DAILY 04/18/20 04/18/20 History atorvastatin 20 mg PO HS 04/18/20 04/18/20 History calcium carbonate-vitamin D3 1 tab PO BID 04/18/20 04/18/20 History [Calcium 500 + D] cholecalciferol (vitamin D3) 1,000 unit PO DAILY 04/18/20 04/18/20 History [Vitamin D3] gabapentin 100 mg PO HS 04/18/20 04/18/20 History hydrochlorothiazide 12.5 mg PO Q OTHER DAY 04/18/20 04/18/20 History lisinopril 10 mg PO DAILY 04/18/20 04/18/20 History metoprolol succinate 100 mg PO QAM 04/18/20 04/18/20 History Past Med/Surg History Medical History Breast cancer Cardiac pacemaker in situ Carotid stenosis, non-symptomatic Central retinal artery occlusion Complete heart block H/O sigmoidoscopy HTN (hypertension) Idiopathic cardiomyopathy Radiation pneumonitis Surgical History H/O right mastectomy History of cardiac cath Family History Mother Cancer MM Father Parkinson disease Brother Hypertension Social History Preferred Language: Yi Communication Ability: Effective Can Runner Required: No Beliefs That Will Affect Care: None Current Living Situation: Spouse Other Information That Helps Us Care for You: No Feels Safe at Home: Yes Safety Concerns: Feels Safe At This Time Smoking Status: Never smoker Do You Dip or Chew Tobacco: No ; Second Hand Exposure: No ; Tobacco Cessation Education Requested by Patient: No Hx Alcohol Use: Yes Alcohol type: wine Hx Substance Use: No Review of Systems Review of Systems: All systems reviewed & are unremarkable except as noted in HPI & below Physical Exam Constitutional: well developed and well nourished Eyes: PERRL, conjunctivae normal, anicteric sclerae ENMT: external ear and nose normal, oropharynx normal Neck: trachea midline, no thyromegaly Respiratory: + labored breathing; no retractions, does not use accessory muscles and no cough Auscultation: + diminished lung sounds (RLL) and + crackles (Mild LLL) Cardiovascular: Rate/Rhythm: regular rhythm and + tachycardic Gastrointestinal (Abdomen): normal bowel sounds, soft, nontender, no hepatosplenomegaly Musculoskeletal: Gait: normal gait No edema B/L LE Neurologic: PERRL, EOMI, accommodation nl, no face palsy, no dysarthria CN's II-XI intact bilaterally Psychiatric: A+Ox3, euthymic affect Results & Data Results & Data ([facility]) Vital Signs (Past 12 Hours) Vital Signs Temp Pulse Resp BP Pulse Ox 04/18/20 11:30 107 H 95 04/18/20 11:00 111 H 20 94 04/18/20 10:30 109 H 04/18/20 10:10 98 H 167/109 H 94 04/18/20 10:00 99 H 93 04/18/20 09:34 106 H 18 04/18/20 09:00 90 21 92 04/18/20 08:44 94 H 25 H 93 04/18/20 07:56 36.8 C 116 H 20 173/110 H 91 Laboratory Results Laboratory Results - last 24 hr 04/18/20 04/18/20 04/18/20 08:32 08:32 08:32 WBC 7.35 RBC 4.72 Hgb 15.0 Hct 43.8 MCV 92.8 MCH 31.8 MCHC 34.2 RDW Std Deviation 46.3 RDW Coeff of Teresa 13.6 Plt Count 244 MPV 8.9 Immature Gran % (Auto) 0.3 Neut % (Auto) 89.6 Lymph % (Auto) 4.9 Yates % (Auto) 4.8 Eos % (Auto) 0.3 Baso % (Auto) 0.1 Immature Gran # (Auto) 0.02 Neut # (Auto) 6.59 H Lymph # (Auto) 0.36 L Yates # (Auto) 0.35 Eos # (Auto) 0.02 Baso # (Auto) 0.01 PT 10.8 INR 1.0 APTT 25.1 PTT Ratio 0.9 VBG pH VBG pCO2 VBG pO2 VBG HCO3 VBG O2 Saturation VBG Base Excess Barometric Pressure Sodium 131 L Potassium 4.3 Chloride 97 L Carbon Dioxide 25 Anion Gap 9.0 BUN 17 Creatinine 0.82 Est Cr Clr Drug Dosing Not Reportable Est GFR ( Amer) 77.2 Est GFR (Non-Af Amer) 66.6 BUN/Creatinine Ratio 20.5 H Glucose 182 H Calcium 8.5 Total Bilirubin 1.7 H AST 30 ALT 29 Alkaline Phosphatase 53 Troponin I 0.030 NT-Pro-B Natriuret Pep Total Protein 7.5 Albumin 4.0 Globulin 3.5 Albumin/Globulin Ratio 1.1 TSH 04/18/20 04/18/20 04/18/20 08:32 09:41 09:41 WBC RBC Hgb Hct MCV MCH MCHC RDW Std Deviation RDW Coeff of Teresa Plt Count MPV Immature Gran % (Auto) Neut % (Auto) Lymph % (Auto) Yates % (Auto) Eos % (Auto) Baso % (Auto) Immature Gran # (Auto) Neut # (Auto) Lymph # (Auto) Yates # (Auto) Eos # (Auto) Baso # (Auto) PT INR APTT PTT Ratio VBG pH 7.40 VBG pCO2 46 VBG pO2 52 VBG HCO3 28 VBG O2 Saturation 85.5 VBG Base Excess 2.2 Barometric Pressure 740.4 Sodium Potassium Chloride Carbon Dioxide Anion Gap BUN Creatinine Est Cr Clr Drug Dosing Est GFR ( Amer) Est GFR (Non-Af Amer) BUN/Creatinine Ratio Glucose Calcium Total Bilirubin AST ALT Alkaline Phosphatase Troponin I NT-Pro-B Natriuret Pep 9281 H Total Protein Albumin Globulin Albumin/Globulin Ratio TSH Pending Diagnostic Findings CXR: IMPRESSION: 1. Cardiomegaly with volume overload. 2. Bilateral pleural effusions and bibasilar atelectasis or consolidation. Underlying infection not excluded. 3. Heterogeneity of underlying lung parenchyma suggest emphysema. Supervising Physician Co-Signing Physician Notes Pt was seen and examined. Agreed with Kamla HEREDIA exam, assessment and plan. 4 yo female with history of idiopathic cardiomyopathy without history of CHF, chronic bundle branch block, radiation pneumonitis s/p breast cancer, asymptomatic carotid stenosis, and HTN who presented to the ED with worsening SOB x 5 days. Pt said that her SOB is worst when she lies flat. She said that she is taking HCTZ every other day. Denies any chest pain, palpitation and fever. She denies any recent traveling and contact with anyone positive with COVID-19. CXR showed cardiomegaly with volume overload. Bilateral pleural effusions and bibasilar atelectasis or consolidation. ProBNP elevated at 9281 on admission. Received Lasix 40mg IV in the ER. She has been diuresis well and clinically improves. Will consider additional lasix later. Cardiology consult. Will repeat CXR and if no improvement on the pleural effusion after IV lasix, will consider pulmonology consult. Will get an echo. Continue I/O while on diuresis and monitor BMP. Will monitor closely in tele. MD Angle
[2020-04-18] MEDS ORDERED: POLYETHYLENE (MIRALAX) 17 GM PACK PO PRN (12:58)
--- NOTE | 2020-04-18 13:18 | XRay Report ---
XR chest 1V portable CLINICAL HISTORY: 84 years-old Female presenting with Repeat CHF. TECHNIQUE: Portable upright AP view of the chest was obtained. COMPARISON: 04/18/2020. FINDINGS: Left subclavian pacer with leads to the right atrium and right ventricular apex. Several external eduardo ds project over the right hemithorax. Atherosclerosis of the aortic arch. Cardiac silhouette mildly e nlarged. Resolved pulmonary vascular prominence. Heterogeneity lung parenchyma. Small to moderate rig ht and trace left pleural effusions. Slightly improved aeration of the lung bases. Persistent bandlik e opacities in the right upper lung with suspected regional architectural distortion. No pneumothorax . Osteopenia suspected. Upper abdomen normal. IMPRESSION: 1. Slightly improved aeration of the lung bases, however, persistent right greater than left pleural effusions and bibasilar atelectasis. 2. Cardiomegaly with resolved volume overload. 3. Right upper lung scarring and lung heterogeneity likely relating to underlying emphysema. ACT 112: Negative or not required by law. Electronically signed by: Jarek Ya M.D. 04/18/2020 1:17 PM
--- NOTE | 2020-04-18 13:27 | Cardiology Consultation ---
Date of Consultation April 18, 2020 Assessment & Plan (1) Cardiac pacemaker in situ: (2) Complete heart block: (3) Idiopathic cardiomyopathy: (4) CHF (congestive heart failure): The patient received some Lasix in the emergency department. She appears comfortable and not short of breath. She is actually comfortably eating her lunch right now. She does have a history of breast cancer with previous lung radiation as well as asthma. The right pleural effusion is concerning and I am going to ask pulmonary to see her. Possibly they could tap it for diagnosis as well as improve her breathing. An echocardiogram is scheduled which I will review when it is available. History of Present Illness Attending Physician: Donn Barbour MD History of Present Illness This is an 84-year-old female with the history as outlined below. From a cardiac standpoint she has been stable for several years after receiving a permanent pacemaker in 2016 for heart block. She does have a history of breast carcinoma and is status post radiation. She also has a history of asthmatic lung disease. She was in her usual state of health until approximately 3 days ago she noticed some tachypnea which progressed to shortness of breath with activity. She also describes orthopnea. No chest pain. No heart palpitations or tachycardia. Chest x-ray performed in the emergency department indicates bilateral pleural effusions with the right being greater than the left. Her pro natruretic peptide is elevated. The first cardiac troponin is negative. TSH is within normal limits. Past medical history: 1.Idiopathic cardiomyopathy, diagnosed in 1997, with improvement to near- normal LV systolic function, EF 45%. 2.Remote cardiac catheterization, 1997, without obstructive coronary disease. 3.Asthmatic lung disease. 4.Hypertension. 5.History of breast carcinoma, status post left chest radiation. 6.Transient complete heart block on ZIO patch monitor, with resultant dual- chamber pacemaker insertion, 11/02/2017. 7.History of retinal artery occlusion, right eye. Allergies Allergy/AdvReac Type Severity Reaction Status Date / Time oxycodone Allergy Unknown "MADE ME Verified 04/18/20 08:44 FEEL BAD" codeine AdvReac Unknown VOMITING Verified 04/18/20 08:44 Home Medications Home Medications Medication Instructions Recorded Confirmed Type ascorbic acid (vitamin C) [Vitamin 500 mg PO DAILY 04/18/20 04/18/20 History C] aspirin [Aspirin Low Dose] 81 mg PO DAILY 04/18/20 04/18/20 History atorvastatin 20 mg PO HS 04/18/20 04/18/20 History calcium carbonate-vitamin D3 1 tab PO BID 04/18/20 04/18/20 History [Calcium 500 + D] cholecalciferol (vitamin D3) 1,000 unit PO DAILY 04/18/20 04/18/20 History [Vitamin D3] gabapentin 100 mg PO HS 04/18/20 04/18/20 History hydrochlorothiazide 12.5 mg PO Q OTHER DAY 04/18/20 04/18/20 History lisinopril 10 mg PO DAILY 04/18/20 04/18/20 History metoprolol succinate 100 mg PO QAM 04/18/20 04/18/20 History Patient History Medical History (Updated 04/18/20 @ 15:59 by JOSE Reyes) Acute hypoxemic respiratory failure (Acute) Breast cancer Cardiac pacemaker in situ Carotid stenosis, non-symptomatic Central retinal artery occlusion Chronic bilateral pleural effusions (Acute) Complete heart block H/O sigmoidoscopy HTN (hypertension) (Acute) Idiopathic cardiomyopathy (Acute) Radiation pneumonitis Surgical History H/O right mastectomy History of cardiac cath Family History Mother Cancer MM Father Parkinson disease Brother Hypertension Social History Preferred Language: Syriac Communication Ability: Effective Fructose Loader Required: No Beliefs That Will Affect Care: None Current Living Situation: Spouse Other Information That Helps Us Care for You: No Feels Safe at Home: Yes Safety Concerns: Feels Safe At This Time Smoking Status: Never smoker Do You Dip or Chew Tobacco: No ; Second Hand Exposure: No ; Tobacco Cessation Education Requested by Patient: No Hx Alcohol Use: Yes Alcohol type: wine Hx Substance Use: No Review of Systems Review of Systems: All systems reviewed & are unremarkable except as noted in HPI & below Nothing additional to add. Physical Exam Physical Exam: General: no acute distress and stated age Head: normocephalic, no masses, lesions, tenderness or abnormalities Eyes: conjunctiva are pink and non-injected, sclera clear Neck: supple, no adenopathy, no bruits, normal jugular venous pulse, no hepatojugular reflux Chest: normal shape and normal respiratory effort Lungs: Decreased breath sounds at the lung bases. Cardiac Exam: - regular rate & rhythm, no murmurs gallops or rubs - normal S1, normal S2 Pulses: 2(+) throughout Abdomen: abdomen soft, non-tender, no abnormal masses and no hepatosplenomegaly Musculoskeletal: no gait disturbance, no joint inflammation, no deforming arthritis Extremities: no edema and no cyanosis Neuro: grossly normal exam Results & Data ([facility]) Vital Signs (Past 12 Hours) Vital Signs Temp Pulse Pulse Resp BP BP Pulse Ox 04/18/20 12:58 36.9 C 102 H 20 168/97 H 92 04/18/20 11:30 107 H 95 04/18/20 11:00 111 H 20 94 04/18/20 10:30 109 H 04/18/20 10:10 98 H 167/109 H 94 04/18/20 10:00 99 H 93 04/18/20 09:34 106 H 18 04/18/20 09:00 90 21 92 04/18/20 08:44 94 H 25 H 93 04/18/20 07:56 36.8 C 116 H 20 173/110 H 91 Laboratory Results Laboratory Results - last 24 hr 04/18/20 04/18/20 04/18/20 08:32 08:32 08:32 WBC 7.35 RBC 4.72 Hgb 15.0 Hct 43.8 MCV 92.8 MCH 31.8 MCHC 34.2 RDW Std Deviation 46.3 RDW Coeff of Teresa 13.6 Plt Count 244 MPV 8.9 Immature Gran % (Auto) 0.3 Neut % (Auto) 89.6 Lymph % (Auto) 4.9 Storey % (Auto) 4.8 Eos % (Auto) 0.3 Baso % (Auto) 0.1 Immature Gran # (Auto) 0.02 Neut # (Auto) 6.59 H Lymph # (Auto) 0.36 L Storey # (Auto) 0.35 Eos # (Auto) 0.02 Baso # (Auto) 0.01 PT 10.8 INR 1.0 APTT 25.1 PTT Ratio 0.9 VBG pH VBG pCO2 VBG pO2 VBG HCO3 VBG O2 Saturation VBG Base Excess Barometric Pressure Sodium 131 L Potassium 4.3 Chloride 97 L Carbon Dioxide 25 Anion Gap 9.0 BUN 17 Creatinine 0.82 Est Cr Clr Drug Dosing Not Reportable Est GFR ( Amer) 77.2 Est GFR (Non-Af Amer) 66.6 BUN/Creatinine Ratio 20.5 H Glucose 182 H Calcium 8.5 Total Bilirubin 1.7 H AST 30 ALT 29 Alkaline Phosphatase 53 Troponin I 0.030 NT-Pro-B Natriuret Pep Total Protein 7.5 Albumin 4.0 Globulin 3.5 Albumin/Globulin Ratio 1.1 TSH 04/18/20 04/18/20 04/18/20 08:32 09:41 09:41 WBC RBC Hgb Hct MCV MCH MCHC RDW Std Deviation RDW Coeff of Teresa Plt Count MPV Immature Gran % (Auto) Neut % (Auto) Lymph % (Auto) Storey % (Auto) Eos % (Auto) Baso % (Auto) Immature Gran # (Auto) Neut # (Auto) Lymph # (Auto) Storey # (Auto) Eos # (Auto) Baso # (Auto) PT INR APTT PTT Ratio VBG pH 7.40 VBG pCO2 46 VBG pO2 52 VBG HCO3 28 VBG O2 Saturation 85.5 VBG Base Excess 2.2 Barometric Pressure 740.4 Sodium Potassium Chloride Carbon Dioxide Anion Gap BUN Creatinine Est Cr Clr Drug Dosing Est GFR ( Amer) Est GFR (Non-Af Amer) BUN/Creatinine Ratio Glucose Calcium Total Bilirubin AST ALT Alkaline Phosphatase Troponin I NT-Pro-B Natriuret Pep 9281 H Total Protein Albumin Globulin Albumin/Globulin Ratio TSH 1.310 Medications Administered Current Inpatient Medications Acetaminophen (Tylenol) 650 mg PO Q4H PRN PRN Reason: Pain or Fever Stop: 05/18/20 12:57 Aspirin (Ecotrin Ectab) 81 mg PO DAILY CHRISTIN Stop: 05/19/20 08:59 Atorvastatin Calcium (Lipitor) 20 mg PO HS CHRISTIN Stop: 05/18/20 20:59 Furosemide (Lasix) 40 mg IV ONE ONE Stop: 04/18/20 17:31 Gabapentin (Neurontin) 100 mg PO HS CHRISTIN Stop: 05/18/20 20:59 Heparin Sodium (Porcine) (Heparin Sodium (Porcine)) 5,000 units SQ Q12 CHRISTIN Stop: 05/18/20 20:59 Lisinopril (Zestril) 10 mg PO DAILY CHRISTIN Stop: 05/19/20 08:59 Metoprolol Succinate (Toprol Xl) 100 mg PO QAM CHRISTIN Stop: 05/19/20 08:59 Polyethylene Glycol (Miralax Powder Packet) 17 gm PO DAILY PRN PRN Reason: Constipation Stop: 05/18/20 12:57
--- NOTE | 2020-04-18 15:42 | Pulmonary Consultation ---
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 Patient did have an elevated proBNP on presentation and has improved after diuresis. I did do a bedside pleural ultrasound which demonstrated right greater than left effusions. These appear to be simple effusions. I did give her the options of being conservative with diuretic therapy or pursuing thoracentesis. She indicated that she will think about these options. It does appear that she has had a chronic right-sided effusion since 2016 and perhaps even prior to this. I suspect that she likely has volume loss and that the effusion has occupying the space of the right lower lobe. Other possibilities include transudative effusion from chronic heart failure. Less likely this is malignancy related given that the effusions are bilateral and given the chronicity. (2) CHF (congestive heart failure): (3) Idiopathic cardiomyopathy: (4) Acute hypoxemic respiratory failure: History of Present Illness Reason for Consultation: Pleural effusion Requesting Physician: Dr. Montiel Attending Physician: Donn Barbour MD History of Present Illness 84-year-old female with a past medical history of complete heart block, idiopathic cardiomyopathy, hypertension, breast cancer status post mastectomy and radiation to the chest who presented to the hospital due to increasing shortness of breath and tachypnea for the last 2 to 3 days. She noted yesterday that her breathing improved in the mid day and then worsened substantially in the evening. She notes that she actually had to think about her breathing she never had to do previously. She does describe two-pillow orthopnea. Denies any significant cough, fevers or chills. No chest pain. She did have some mild nausea but this improved spontaneously. Patient denies any history of tobacco abuse. 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 Lives with her . No significant white count seen. She is currently on 2 L nasal cannula saturating at 95%. Chest x-ray 8:28 AM today demonstrated cardiomegaly, bilateral effusions and atelectasis. Subsequent x-ray at 1:01 PM demonstrated slightly improved aeration in the lung bases with a persistent effusion. Cardiomegaly had improved at that point. proBNP was found to be elevated. Patient received 40 mg of IV Lasix in the emergency department. It does appear that she has had a pleural effusion on the right since 2016. She also has right upper lobe scarring likely related to radiation fibrosis from radiation to her breast. Allergies Allergy/AdvReac Type Severity Reaction Status Date / Time oxycodone Allergy Unknown "MADE ME Verified 04/18/20 08:44 FEEL BAD" codeine AdvReac Unknown VOMITING Verified 04/18/20 08:44 Home Medications Home Medications Medication Instructions Recorded Confirmed Type ascorbic acid (vitamin C) [Vitamin 500 mg PO DAILY 04/18/20 04/18/20 History C] aspirin [Aspirin Low Dose] 81 mg PO DAILY 04/18/20 04/18/20 History atorvastatin 20 mg PO HS 04/18/20 04/18/20 History calcium carbonate-vitamin D3 1 tab PO BID 04/18/20 04/18/20 History [Calcium 500 + D] cholecalciferol (vitamin D3) 1,000 unit PO DAILY 04/18/20 04/18/20 History [Vitamin D3] gabapentin 100 mg PO HS 04/18/20 04/18/20 History hydrochlorothiazide 12.5 mg PO Q OTHER DAY 04/18/20 04/18/20 History lisinopril 10 mg PO DAILY 04/18/20 04/18/20 History metoprolol succinate 100 mg PO QAM 04/18/20 04/18/20 History Patient History Medical History Breast cancer Cardiac pacemaker in situ Carotid stenosis, non-symptomatic Central retinal artery occlusion Complete heart block H/O sigmoidoscopy HTN (hypertension) Idiopathic cardiomyopathy Radiation pneumonitis Surgical History H/O right mastectomy History of cardiac cath Family History Mother Cancer MM Father Parkinson disease Brother Hypertension Social History Preferred Language: Swedish Communication Ability: Effective Hl7 Developer Required: No Beliefs That Will Affect Care: None Current Living Situation: Spouse Other Information That Helps Us Care for You: No Feels Safe at Home: Yes Safety Concerns: Feels Safe At This Time Smoking Status: Never smoker Do You Dip or Chew Tobacco: No ; Second Hand Exposure: No ; Tobacco Cessation Education Requested by Patient: No Hx Alcohol Use: Yes Alcohol type: wine Hx Substance Use: No Review of Systems Review of Systems: All systems reviewed & are unremarkable except as noted in HPI & below Physical Exam Constitutional: WD/WN, vitals as above + thin Eyes: PERRL, conjunctivae normal, anicteric sclerae ENMT: external ear and nose normal, oropharynx normal Neck: trachea midline, no thyromegaly Respiratory: Mild crackles at the bases bilaterally. Diminished on the right. Cardiovascular: RRR, no murmur, no edema Gastrointestinal (Abdomen): normal bowel sounds, soft, nontender, no hepatosplenomegaly Musculoskeletal: no cyanosis or clubbing, extremities motor strength 5/5 Skin: no rashes, warm and dry Neurologic: PERRL, EOMI, accommodation nl, no face palsy, no dysarthria Psychiatric: A+Ox3, euthymic affect Results & Data Results & Data ([facility]) Vital Signs (Past 12 Hours) Vital Signs Temp Pulse Pulse Resp BP BP Pulse Ox 04/18/20 13:37 96 H 04/18/20 12:58 98.4 F 102 H 20 168/97 H 92 04/18/20 11:30 107 H 95 04/18/20 11:00 111 H 20 94 04/18/20 10:30 109 H 04/18/20 10:10 98 H 167/109 H 94 04/18/20 10:00 99 H 93 04/18/20 09:34 106 H 18 04/18/20 09:00 90 21 92 04/18/20 08:44 94 H 25 H 93 04/18/20 07:56 98.2 F 116 H 20 173/110 H 91 I personally reviewed her laboratory data, chest imaging and previous notes. PG Care Time/CCT Total # of Minutes Spent Total Time Spent with Patient: Total time spent is greater than 50% in coordination of care (as documented) at patient's floor/unit and/or counseling patient: Coding Level of Care Code 78338 Initial Inpt Care Lvl 3 Diagnoses Chronic bilateral pleural effusions J90 CHF (congestive heart failure) I50.9 Idiopathic cardiomyopathy I42.8 Acute hypoxemic respiratory failure J96.01
--- NOTE | 2020-04-18 16:10 | Electrocardiogram Report ---
Test Reason : Blood Pressure : / mmHG Vent. Rate : 097 BPM Atrial Rate : 097 BPM P-R Int : 168 ms QRS Dur : 148 ms QT Int : 430 ms P-R-T Axes : 062 -58 111 degrees QTc Int : 546 ms Normal sinus rhythm Possible Left atrial enlargement Left axis deviation Left bundle branch block Abnormal ECG When compared with ECG of 02-NOV-2017 13:39, [place] interval has decreased T wave inversion more evident in Lateral leads Confirmed by Luis Tejada ([id number]) on 04/18/2020 4:10:45 PM Referred By: REFERRED SELF Confirmed By:Pardeep Tejada
[2020-04-18] MEDS ORDERED: FUROSEMIDE 40 MG/4 ML VIAL IV ONE (17:30)
[2020-04-18] MEDS: HEPARIN SOD 5,000 UNIT/0.5 ML VIAL SQ SCH (21:18)
[2020-04-18] MEDS: ATORVASTATIN 20 MG TAB PO SCH (21:20)
[2020-04-18] MEDS: GABAPENTIN 100 MG CAP PO SCH (21:20)
[2020-04-18] MEDS: ACETAMINOPHEN 325 MG TAB PO PRN (21:26)
[2020-04-18] MEDS ORDERED: MAGNESIUM HYDROXIDE SUSP 30 ML UDC PO ONE (23:35)
[2020-04-19 02:58] LABS: Appearance Urine Cloudy (Clear); Bacteria Urine Automated Negative (Negative); Bilirubin Urine Negative (Negative); Blood Urine Negative (Negative); Color Urine Yellow; Epithelial Cell Urine Auto 20-30 /lpf (0-5); Glucose Urine UA Negative (Negative); Ketones Urine Negative (Negative); Leukocyte Esterase Urine 3+ (Negative); Nitrite Urine Negative (Negative); Protein Urine Negative (Negative); RBC Urine Automated 0-4 /hpf (0-4); Specific Gravity Urine 1.014 (1.000-1.030); Urobilinogen Urine Negative (Negative); WBC Urine Automated >30 /hpf (0-5); pH Urine 5.5 (4.5-7.5)
[2020-04-19 06:04] LABS: Hematocrit (blood only) 42.9 % (37-47); Hemoglobin 15.2 g/dL (12.0-16.0); Mean Corpuscular Hemoglobin 32.1 pg (25-34); Mean Corpuscular Hgb Conc 35.4 g/dL (32-36); Mean Corpuscular Volume 90.7 fL (80-100); Mean Platelet Volume 8.9 fL (7.4-10.4); Platelet Count 201 K/uL (130-400); RDW Coefficient of Variation 13.3 % (11.5-14.5); RDW Standard Deviation 43.7 fL (36.4-46.3); Red Blood Count 4.73 M/uL (4.2-5.4); White Blood Count 4.97 K/uL (4.8-10.8)
[2020-04-19 06:40] LABS: BUN Creatinine Ratio 32.7 (10-20); Calcium 8.8 mg/dl (8.5-10.1); Creatinine Clr Calc Pharmacy 65.9 ml/min; Est GFR (African American) 96.3; Est GFR (Non-African American) 83.1; Potassium 3.4 mmol/L (3.5-5.1)
[2020-04-19] MEDS: ACETAMINOPHEN 325 MG TAB PO PRN (07:36)
[2020-04-19] MEDS: METOPROLOL SUCC 50MG EXT REL TAB PO SCH (07:37)
[2020-04-19] MEDS: ASPIRIN 81 MG ECTAB PO SCH (07:37)
[2020-04-19] MEDS: HEPARIN SOD 5,000 UNIT/0.5 ML VIAL SQ SCH ×2 (07:37→20:54)
[2020-04-19] MEDS: lisinopriL 10 MG TAB PO SCH (07:37)
[2020-04-19] MEDS ORDERED: POTASSIUM CHLORIDE 20 MEQ TABCR PO ONE (08:59)
--- NOTE | 2020-04-19 10:08 | XRay Report ---
XR chest 2V PA/lateral CLINICAL HISTORY: post diuresis COMPARISON STUDY: Chest radiograph April 18, 2020 at 1:01 PM. FINDINGS: Dual lead left subclavian pacemaker is in place. There is moderate cardiomegaly. Slight imp rovement in pulmonary vascular congestion is noted. A moderate right pleural effusion is noted. There is a trace left pleural effusion. Suspected scarring within the right upper lobe is noted. IMPRESSION: 1. Slight improvement in pulmonary vascular congestion. 2. Moderate right pleural effusion. 3. Suspected right upper lobe scarring which can be assessed on subsequent exams to ensure stability. ACT 112: Negative or not required by law. Electronically signed by: Connor Sahu M.D. 04/19/2020 10:06 AM
--- NOTE | 2020-04-19 10:10 | Cardiology Progress Note ---
Date of Service April 19, 2020 Assessment & Plan (1) Cardiac pacemaker in situ: (2) Complete heart block: (3) Idiopathic cardiomyopathy: (4) CHF (congestive heart failure): Pulmonary consult is appreciated. 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 A follow-up chest x-ray is planned for today. The patient's echocardiogram indicates cardiac dyssynchrony either from her left bundle branch block and or from her right ventricular pacemaker. In the future she may benefit from the addition of a left ventricular pacing lead and a by V device. Otherwise she is doing well. No additional cardiac testing is planned at this time. Subjective The patient has no new complaints today. She actually feels well. Review of Systems Review of Systems: All systems reviewed & are unremarkable except as noted in HPI & below Nothing additional to add. Physical Exam Physical Exam: General: no acute distress and stated age Head: normocephalic, no masses, lesions, tenderness or abnormalities Eyes: conjunctiva are pink and non-injected, sclera clear Neck: supple, no adenopathy, no bruits, normal jugular venous pulse, no hepatojugular reflux Chest: normal shape and normal respiratory effort Lungs: clear to auscultation and percussion Cardiac Exam: - regular rate & rhythm, no murmurs gallops or rubs - normal S1, normal S2 Pulses: 2(+) throughout Abdomen: abdomen soft, non-tender, no abnormal masses and no hepatosplenomegaly Musculoskeletal: no gait disturbance, no joint inflammation, no deforming arthritis Extremities: no edema and no cyanosis Neuro: grossly normal exam Results & Data Vital Signs (Past 12 Hours) Vital Signs Temp Pulse Resp BP Pulse Ox 04/19/20 07:27 36.6 C 84 20 132/81 96 04/19/20 04:59 36.7 C 88 18 109/70 95 04/19/20 04:55 87 L 04/19/20 02:00 92 04/18/20 23:52 36.3 C L 85 18 130/78 91 Laboratory Results Laboratory Results - last 24 hr 04/18/20 04/18/20 04/18/20 08:32 09:41 09:41 WBC RBC Hgb Hct MCV MCH MCHC RDW Std Deviation RDW Coeff of Teresa Plt Count MPV VBG pH 7.40 VBG pCO2 46 VBG pO2 52 VBG HCO3 28 VBG O2 Saturation 85.5 VBG Base Excess 2.2 Barometric Pressure 740.4 Sodium Potassium Chloride Carbon Dioxide Anion Gap BUN Creatinine Est Cr Clr Drug Dosing Est GFR ( Amer) Est GFR (Non-Af Amer) BUN/Creatinine Ratio Glucose Calcium Troponin I NT-Pro-B Natriuret Pep 9281 H TSH 1.310 Urine Color Urine Appearance Urine pH Ur Specific [place] Urine Protein Urine Glucose (UA) Urine Ketones Urine Blood Urine Nitrite Urine Bilirubin Urine Urobilinogen Ur Leukocyte Esterase Urine WBC (Auto) Urine RBC (Auto) U Hyaline Cast (Auto) U Epithel Cells (Auto) Urine Bacteria (Auto) 04/18/20 04/18/20 04/19/20 14:38 20:31 02:35 WBC RBC Hgb Hct MCV MCH MCHC RDW Std Deviation RDW Coeff of Teresa Plt Count MPV VBG pH VBG pCO2 VBG pO2 VBG HCO3 VBG O2 Saturation VBG Base Excess Barometric Pressure Sodium Potassium Chloride Carbon Dioxide Anion Gap BUN Creatinine Est Cr Clr Drug Dosing Est GFR ( Amer) Est GFR (Non-Af Amer) BUN/Creatinine Ratio Glucose Calcium Troponin I 0.059 H* 0.065 H* NT-Pro-B Natriuret Pep TSH Urine Color Yellow Urine Appearance Cloudy A Urine pH 5.5 Ur Specific [place] 1.014 Urine Protein Negative Urine Glucose (UA) Negative Urine Ketones Negative Urine Blood Negative Urine Nitrite Negative Urine Bilirubin Negative Urine Urobilinogen Negative Ur Leukocyte Esterase 3+ H Urine WBC (Auto) >30 H Urine RBC (Auto) 0-4 U Hyaline Cast (Auto) 10-30 H U Epithel Cells (Auto) 20-30 H Urine Bacteria (Auto) Negative 04/19/20 04/19/20 05:51 05:51 WBC 4.97 RBC 4.73 Hgb 15.2 Hct 42.9 MCV 90.7 MCH 32.1 MCHC 35.4 RDW Std Deviation 43.7 RDW Coeff of Teresa 13.3 Plt Count 201 MPV 8.9 VBG pH VBG pCO2 VBG pO2 VBG HCO3 VBG O2 Saturation VBG Base Excess Barometric Pressure Sodium 133 L Potassium 3.4 L D Chloride 94 L Carbon Dioxide 30 Anion Gap 9.0 BUN 21 H Creatinine 0.64 Est Cr Clr Drug Dosing 65.9 Est GFR ( Amer) 96.3 Est GFR (Non-Af Amer) 83.1 BUN/Creatinine Ratio 32.7 H Glucose 107 H Calcium 8.8 Troponin I NT-Pro-B Natriuret Pep TSH Urine Color Urine Appearance Urine pH Ur Specific [place] Urine Protein Urine Glucose (UA) Urine Ketones Urine Blood Urine Nitrite Urine Bilirubin Urine Urobilinogen Ur Leukocyte Esterase Urine WBC (Auto) Urine RBC (Auto) U Hyaline Cast (Auto) U Epithel Cells (Auto) Urine Bacteria (Auto) Medications Administered Current Inpatient Medications Acetaminophen (Tylenol) 650 mg PO Q4H PRN PRN Reason: Pain or Fever Stop: 05/18/20 12:57 Last Admin: 04/19/20 07:36 Dose: 650 mg Documented by: Aspirin (Ecotrin Ectab) 81 mg PO DAILY [facility] Stop: 05/19/20 08:59 Last Admin: 04/19/20 07:37 Dose: 81 mg Documented by: Atorvastatin Calcium (Lipitor) 20 mg PO HS [facility] Stop: 05/18/20 20:59 Last Admin: 04/18/20 21:20 Dose: 20 mg Documented by: Furosemide (Lasix) 20 mg PO QAM [facility] Stop: 05/19/20 10:14 Gabapentin (Neurontin) 100 mg PO HS [facility] Stop: 05/18/20 20:59 Last Admin: 04/18/20 21:20 Dose: 100 mg Documented by: Heparin Sodium (Porcine) (Heparin Sodium (Porcine)) 5,000 units SQ Q12 [facility] Stop: 05/18/20 20:59 Last Admin: 04/19/20 07:37 Dose: 5,000 units Documented by: Lisinopril (Zestril) 10 mg PO DAILY [facility] Stop: 05/19/20 08:59 Last Admin: 04/19/20 07:37 Dose: 10 mg Documented by: Metoprolol Succinate (Toprol Xl) 100 mg PO QAM [facility] Stop: 05/19/20 08:59 Last Admin: 04/19/20 07:37 Dose: 100 mg Documented by: Polyethylene Glycol (Miralax Powder Packet) 17 gm PO DAILY PRN PRN Reason: Constipation Stop: 05/18/20 12:57 (1) CHF (congestive heart failure) Heart failure chronicity: acute Heart failure type: unspecified Qualified Code(s): I50.9 - Heart failure, unspecified
[2020-04-19] MEDS: FUROSEMIDE 20 MG TAB PO SCH (11:02)
--- NOTE | 2020-04-19 11:35 | Pulmonology Progress Note ---
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 Patient did have an elevated proBNP on presentation and has improved after diuresis. I did do a bedside pleural ultrasound which demonstrated right greater than left effusions. These appear to be simple effusions. I did give her the options of being conservative with diuretic therapy or pursuing thoracentesis. She indicated that she will think about these options. It does appear that she has had a chronic right-sided effusion since 2016 and perhaps even prior to this. I suspect that she likely has volume loss and that the effusion has occupying the space of the right lower lobe. Other possibilities include transudative effusion from chronic heart failure. Less likely this is malignancy related given that the effusions are bilateral and given the chronicity. I evaluated patient today and the chest x-ray shows some slight improvement in pulmonary vascular congestion with this chronic moderate right-sided pleural effusion and right upper lobe scarring. I suspect there is chronic volume loss at that right base given patient's clinical improvement I would follow her as an outpatient. Dr. Avila can see the patient in several weeks time following discharge and make an assessment on whether a diagnostic and therapeutic thoracentesis would be indicated. (2) CHF (congestive heart failure): Heart failure chronicity: acute Heart failure type: unspecified Qualified Code(s): I50.9 - Heart failure, unspecified (3) Idiopathic cardiomyopathy: (4) Acute hypoxemic respiratory failure: (5) Complete heart block: (6) Cardiac pacemaker in situ: (7) Carotid stenosis, non-symptomatic: (8) HTN (hypertension): Hypertension type: unspecified Qualified Code(s): I10 - Essential (primary) hypertension Admission and Anticipated Discharge Date Admission Date: April 18, 2020 Subjective 84-year-old white female is followed as an outpatient by Dr. Bragg and Dr. Brian Blanton is Dr. Willingham from [facility]ology[facility]. Patient has been seen by Dr. Terry/Pulmonary Medicine and I am covering for him this weekend. Is a previous history of breast cancer with right sided mastectomy and radiation therapy with radiation fibrosis apparently involving the right upper lobe. She reportedly has a chronic right pleural effusion and had an elevated proBNP on presentation but has significantly improved with diuresis. The effusions right greater than left appear to be chronic less likely to be malignant. She states she is significantly improved since admission and is eager to go home. Denies pleuritic pain chest discomfort cough hemoptysis or recent fevers chills or sweats. She is not had an elevated white count. Patient received 40 mg of IV Lasix in the ER. Review of Systems Constitutional: no problem reported Eyes: no problem reported Ear, Nose, Mouth, Throat: no problem reported Respiratory: no problem reported Cardiovascular: no problem reported Gastrointestinal: no problem reported Genitourinary: no problem reported Musculoskeletal: no problem reported Integumentary: no problem reported Neurologic: no problem reported Psychiatric: no problem reported Endocrine: no problem reported Hematologic / Lymphatic: no problem reported Allergy / Immunological: no problem reported Physical Exam Constitutional: well developed and well nourished; no acute distress Eyes: PERRL, conjunctivae normal, anicteric sclerae ENMT: external ear and nose normal, oropharynx normal Neck: trachea midline, no thyromegaly Respiratory: normal respiratory effort Auscultation: lungs clear to auscultation bilaterally and + diminished lung sounds (Diminished breath sounds at the right base with dullness but generally clear) Cardiovascular: RRR, no murmur, no edema Palpation: normal PMI; no thrill Gastrointestinal (Abdomen): normal bowel sounds, soft, nontender, no hepatosplenomegaly Musculoskeletal: no cyanosis or clubbing, extremities motor strength 5/5 Gait: normal gait Skin: no rashes, warm and dry Neurologic: PERRL, EOMI, accommodation nl, no face palsy, no dysarthria Psychiatric: A+Ox3, euthymic affect Lymphatic: no cervical or axillary lymphadenopathy Results & Data Results & Data ([facility]) Vital Signs (Past 12 Hours) Vital Signs Temp Pulse Pulse Resp BP Pulse Ox 04/19/20 08:00 93 H 04/19/20 07:27 36.6 C 84 20 132/81 96 04/19/20 04:59 36.7 C 88 18 109/70 95 04/19/20 04:55 87 L 04/19/20 02:00 92 04/18/20 23:52 36.3 C L 85 18 130/78 91 PG Care Time/CCT Total # of Minutes Spent Total Time Spent with Patient: Total time spent is greater than 50% in coordination of care (as documented) at patient's floor/unit and/or counseling patient: Coding Level of Care Code 56010 Subseq Hosp Care Lvl 3 Diagnoses Chronic bilateral pleural effusions J90 CHF (congestive heart failure) I50.9 Heart failure chronicity: acute Heart failure type: unspecified Idiopathic cardiomyopathy I42.8 Acute hypoxemic respiratory failure J96.01 Complete heart block I44.2 Cardiac pacemaker in situ Z95.0 Carotid stenosis, non-symptomatic I65.29 HTN (hypertension) I10 Hypertension type: unspecified Time Spent (min) 35
--- NOTE | 2020-04-19 18:12 | Hospitalist Progress Note ---
Date of Service April 19, 2020 Assessment & Plan (1) CHF (congestive heart failure): (2) Idiopathic cardiomyopathy: (3) Cardiac pacemaker in situ: (4) Complete heart block: B/L pleural effusion Acute CHF exacerbation Chronic right pleural effusion--malignant effusion can not be ruled out given H/O breast Cancer/radiation therapy --CXR:Cardiomegaly with volume overload. Bilateral pleural effusions and bibasilar atelectasis or consolidation. Underlying infection not excluded. Heterogeneity of underlying lung parenchyma suggest emphysema. --ECHO: Moderate LVH, septal motion is consistent with conduction abnormality. Apical wall motion abnormality may reflect pacemaker activation. Ejection fraction 35 to 40%. Left atrium is moderately dilated. Mild mitral regurgitation. Moderate size left pleural effusion. --Saturating well on room air --Volume status improved with IV Lasix --Needs diagnostic and or therapeutic thoracentesis--likely as outpatient --Appreciate Cardiology, pulmonology Input --Started on Lasix 20mg daily --Monitor volume status --Continue lisinopril, metoprolol Left bundle branch block H/O transient complete heart block S/P dual-chamber pacemaker ECHO as above Patient may benefit from left ventricular pacing lead and biventricular device Appreciate cardiology input Hypokalemia Secondary to diuretics Replete electrolytes as needed (5) HTN (hypertension): Continue home medications (6) DVT prophylaxis: Heparin SQ Admission and Anticipated Discharge Date Admission Date: April 18, 2020 Subjective Patient is seen and examined at bedside States feeling better today Dyspnea improved after IV Lasix Denies any chest pain, nausea, dizziness, abdominal pain Saturating well on room air Offers no other complaints Review of Systems Review of Systems: All systems reviewed & are unremarkable except as noted in HPI & below Physical Exam Physical Exam: Physical Exam: Vitals signs as noted above General Appearance:Moderately built and nourished, no apparent distress Head: normocephalic, Atraumatic Eyes: normal inspection, EOMI Neck: supple, Trachea midline Respiratory/Chest: Decreased breath sounds R base, CTA, No accessory muscle use Cardiovascular: S1, S2, No murmur Abdomen/GI:Soft, Non tender, Bowel sounds present Extremities/Musculoskelatal:normal inspection, no edema Neurologic/Psych:AAOX3, grossly no focal neurological deficits Skin: normal color, warm Results & Data Results & Data ([facility]) Vital Signs (Past 12 Hours) Vital Signs Temp Pulse Pulse Resp BP Pulse Ox 04/19/20 16:17 36.7 C 86 19 135/80 96 04/19/20 15:04 87 04/19/20 12:23 36.8 C 82 20 122/78 96 04/19/20 08:00 93 H 04/19/20 07:27 36.6 C 84 20 132/81 96 Laboratory Results Short CBC 04/19/20 Range/Units 05:51 WBC 4.97 (4.8-10.8) K/uL Hgb 15.2 (12.0-16.0) g/dL Hct 42.9 (37-47) % Plt Count 201 (130-400) K/uL BMP 04/19/20 05:51 Sodium 133 L Potassium 3.4 L D Chloride 94 L Carbon Dioxide 30 BUN 21 H Creatinine 0.64 Glucose 107 H Calcium 8.8 Cardiac Enzymes 04/18/20 Range/Units 20:31 Troponin I 0.065 H* (0-0.045) ng/ml Urine 04/19/20 Range/Units 02:35 Urine Color Yellow Urine Appearance Cloudy A (Clear) Urine pH 5.5 (4.5-7.5) Ur Specific [place] 1.014 (1.000-1.030) Urine Protein Negative (Negative) Urine Glucose (UA) Negative (Negative) (1) CHF (congestive heart failure) Heart failure chronicity: acute Heart failure type: unspecified Qualified Code(s): I50.9 - Heart failure, unspecified (2) HTN (hypertension) Hypertension type: unspecified Qualified Code(s): I10 - Essential (primary) hypertension
--- NOTE | 2020-04-19 19:37 | Electrocardiogram Report ---
Test Reason : Blood Pressure : / mmHG Vent. Rate : 088 BPM Atrial Rate : 088 BPM P-R Int : 180 ms QRS Dur : 150 ms QT Int : 462 ms P-R-T Axes : 090 -74 098 degrees QTc Int : 559 ms Normal sinus rhythm Possible Left atrial enlargement Left axis deviation Left bundle branch block Abnormal ECG When compared with ECG of 18-APR-2020 08:31, No significant change was found Confirmed by Luis Tejada ([id number]) on 04/19/2020 7:37:27 PM Referred By: REFERRED SELF Confirmed By:Pardeep Tejada
[2020-04-19] MEDS: ATORVASTATIN 20 MG TAB PO SCH (20:53)
[2020-04-19] MEDS: GABAPENTIN 100 MG CAP PO SCH (20:54)
[2020-04-20] MEDS: HEPARIN SOD 5,000 UNIT/0.5 ML VIAL SQ SCH (07:43)
[2020-04-20] MEDS: METOPROLOL SUCC 50MG EXT REL TAB PO SCH (07:43)
[2020-04-20] MEDS: ASPIRIN 81 MG ECTAB PO SCH (07:44)
[2020-04-20] MEDS: FUROSEMIDE 20 MG TAB PO SCH (07:44)
[2020-04-20 07:50] LABS: BUN Creatinine Ratio 28.1 (10-20); Calcium 8.4 mg/dl (8.5-10.1); Creatinine Clr Calc Pharmacy 64.9 ml/min; Est GFR (African American) 95.8; Est GFR (Non-African American) 82.7; Magnesium 2.2 mg/dl (1.8-2.4); Potassium 3.8 mmol/L (3.5-5.1)
[2020-04-20] MEDS: lisinopriL 10 MG TAB PO SCH (08:20)
--- NOTE | 2020-04-20 13:25 | Hospitalist Progress Note ---
Date of Service April 20, 2020 Assessment & Plan (1) CHF (congestive heart failure): (2) Idiopathic cardiomyopathy: (3) Cardiac pacemaker in situ: (4) Complete heart block: B/L pleural effusion Acute CHF exacerbation Chronic right pleural effusion--malignant effusion can not be ruled out given H/O breast Cancer/radiation therapy --CXR:Cardiomegaly with volume overload. Bilateral pleural effusions and bibasilar atelectasis or consolidation. Underlying infection not excluded. Heterogeneity of underlying lung parenchyma suggest emphysema. --ECHO: Moderate LVH, septal motion is consistent with conduction abnormality. Apical wall motion abnormality may reflect pacemaker activation. Ejection fraction 35 to 40%. Left atrium is moderately dilated. Mild mitral regurgitation. Moderate size left pleural effusion. --Saturating well on room air --Volume status improved with IV Lasix --Needs diagnostic and or therapeutic thoracentesis--likely as outpatient --Appreciate Cardiology, pulmonology Input --Started on Lasix 20mg daily --Monitor volume status --Continue lisinopril, metoprolol --Weaned off of oxygen --Dyspnea resolved Left bundle branch block H/O transient complete heart block S/P dual-chamber pacemaker ECHO as above Patient may benefit from left ventricular pacing lead and biventricular device Appreciate cardiology input Hypokalemia Secondary to diuretics Resolved Monitor electrolytes (5) HTN (hypertension): Continue home medications (6) DVT prophylaxis: Heparin SQ Admission and Anticipated Discharge Date Admission Date: April 18, 2020 Subjective Patient is seen and examined at bedside Denies Dyspnea today No new complaints Denies any chest pain, nausea, dizziness, abdominal pain Weaned off of oxygen Saturating well on room air Review of Systems Review of Systems: All systems reviewed & are unremarkable except as noted in HPI & below Physical Exam Physical Exam: Physical Exam: Vitals signs as noted above General Appearance:Moderately built and nourished, no apparent distress Head: normocephalic, Atraumatic Eyes: normal inspection, EOMI Neck: supple, Trachea midline Respiratory/Chest: Normal breath sounds, CTA, No accessory muscle use Cardiovascular: S1, S2, No murmur Abdomen/GI:Soft, Non tender, Bowel sounds present Extremities/Musculoskelatal:normal inspection, no edema Neurologic/Psych:AAOX3, grossly no focal neurological deficits Skin: normal color, warm Results & Data Results & Data ([facility]) Vital Signs (Past 12 Hours) Vital Signs Temp Pulse Pulse Resp BP Pulse Ox 04/20/20 12:06 36.6 C 88 18 116/61 95 04/20/20 08:00 87 04/20/20 07:46 36.8 C 84 16 132/72 96 04/20/20 03:48 37.1 C 87 19 123/72 98 Laboratory Results BMP 04/20/20 06:54 Sodium 136 Potassium 3.8 Chloride 99 Carbon Dioxide 30 BUN 18 Creatinine 0.65 Glucose 92 Calcium 8.4 L (1) CHF (congestive heart failure) Heart failure chronicity: acute Heart failure type: unspecified Qualified Code(s): I50.9 - Heart failure, unspecified (2) HTN (hypertension) Hypertension type: unspecified Qualified Code(s): I10 - Essential (primary) hypertension
--- NOTE | 2020-04-20 15:09 | Discharge Summary ---
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 The patient initially started to noticed that she was having a hard time catching her breath and was getting SOB with exertion, but the last 2 nights, she also couldn't sleep or lay down in bed because of the SOB. She has had some mild nausea associated with these symptoms as well but no coughing, congestion, fever, sweats/chills, diarrhea, or chest pain. No edema in her legs. She hasn't weighed herself recently, so unsure of any weight gain. No changes in her diet. She has been doing well at avoiding salt intake since she hasn't been able to eat out. Since presentation to the ED, patient's BP has been elevated up to 173/110. O2 saturation decreased- started on 2 L via nasal cannula. Sats improved. BNP noted to be elevated at 9281. Troponin detectable but not elevated. EKG shows LBBB & QTC 546. Chest X-Ray showed cardiomegaly with signs of volume overload and b/l pleural effusions. She is currently sitting up in bed with mildly labored breathing. She continues to have SOB. 40 mg IV Lasix given in the ED. Patient is urinating often. Last outpatient Echo was completed 10/08/17. It showed EF 45-50%, mild MR, mild TR, and septal motion abnormality consistent with LBBB. Admission Exam Per Admitting Provider Physical Exam Constitutional: well developed and well nourished Eyes: PERRL, conjunctivae normal, anicteric sclerae ENMT: external ear and nose normal, oropharynx normal Neck: trachea midline, no thyromegaly Respiratory: + labored breathing; no retractions, does not use accessory muscles and no cough Auscultation: + diminished lung sounds (RLL) and + crackles (Mild LLL) Cardiovascular: Rate/Rhythm: regular rhythm and + tachycardic Gastrointestinal (Abdomen): normal bowel sounds, soft, nontender, no hepatosplenomegaly Musculoskeletal: Gait: normal gait No edema B/L LE Neurologic: PERRL, EOMI, accommodation nl, no face palsy, no dysarthria CN's II-XI intact bilaterally Psychiatric: A+Ox3, euthymic affect Principal Diagnosis Acute CHF exacerbation Bilateral. Hypokalemia Discharge Data Allergies Allergy/AdvReac Type Severity Reaction Status Date / Time oxycodone Allergy Unknown "MADE ME Verified 04/18/20 08:44 FEEL BAD" codeine AdvReac Unknown VOMITING Verified 04/18/20 08:44 Consultations 04/18/20 11:02 ED Decision to Admit Stat 04/18/20 12:58 Consult Cardiology Routine Consult Case Management - Discharge Planning Routine 04/18/20 14:23 Consult Pulmonology Routine Procedures Performed --CXR:Cardiomegaly with volume overload. Bilateral pleural effusions and bibasilar atelectasis or consolidation. Underlying infection not excluded. Heterogeneity of underlying lung parenchyma suggest emphysema. --ECHO: Moderate LVH, septal motion is consistent with conduction abnormality. Apical wall motion abnormality may reflect pacemaker activation. Ejection f raction 35 to 40%. Left atrium is moderately dilated. Mild mitral regurgitation. Moderate size left pleural effusion. Hospital Course (1) CHF (congestive heart failure): (2) Idiopathic cardiomyopathy: (3) Cardiac pacemaker in situ: (4) Complete heart block: B/L pleural effusion Acute CHF exacerbation Chronic right pleural effusion--malignant effusion can not be ruled out given H/O breast Cancer/radiation therapy --CXR:Cardiomegaly with volume overload. Bilateral pleural effusions and bibasilar atelectasis or consolidation. Underlying infection not excluded. Heterogeneity of underlying lung parenchyma suggest emphysema. --ECHO: Moderate LVH, septal motion is consistent with conduction abnormality. Apical wall motion abnormality may reflect pacemaker activation. Ejection fraction 35 to 40%. Left atrium is moderately dilated. Mild mitral regurgitation. Moderate size left pleural effusion. --Saturating well on room air --Volume status improved with IV Lasix --Needs diagnostic and or therapeutic thoracentesis--likely as outpatient --Appreciate Cardiology, pulmonology Input --Started on Lasix 20mg daily --Monitor volume status --Continue lisinopril, metoprolol --Weaned off of oxygen --Dyspnea resolved Left bundle branch block H/O transient complete heart block S/P dual-chamber pacemaker ECHO as above Patient may benefit from left ventricular pacing lead and biventricular device Appreciate cardiology input Hypokalemia Secondary to diuretics Resolved Monitor electrolytes (5) HTN (hypertension): Continue home medications (6) DVT prophylaxis: Heparin SQ Total Time Total Time Spent Total Time Spent (In Minutes): 40 minutes Total Time Includes: Examination of the Patient, Discharge Planning, Medication Reconciliation, Communication With Other Providers and Other Discharge Plan Discharge Items Patient Disposition: Home - Self-Care Reason For Visit: CHF Discharge Diagnosis: Acute CHF exacerbation Bilateral. Hypokalemia Activity: Per Instructions section Exercise/Sports: Gradually increase as tolerated Non-emergency contact: Primary Care Provider, Floor Tiling Professional and Stave Log Cut Off Saw Operator Call non-emergency contact if: you have any medication questions, your symptoms worsen, your pain is not controlled, your pain is worsening, your pain is unusual for you, your pain is concerning for you and you have a fever Follow-up/Referrals: Brian Blanton DO [Primary Care Provider] - Diet: Heart Healthy Addtl Attending Provider Instructions: Follow-up with your primary care physician Dr. Brian Blanton in 1 week Follow-up with your electrical engineering professor in 3-4 weeks for possible diagnostic and therapeutic thoracentesis Follow up with your Floor Tiling Professional as advised Seek immediate medical attention if your symptoms reoccur or worsen Call your Primary Care doctor if any of the following symptoms or problems start or get worse: * Shortness of breath or difficulty breathing * Wake up at night short of breath * Chest pain * Cough * Swelling of your hands, feet, or legs * More fatigued or tired with your normal activity * Palpitations - sudden fast heart beats WEIGHT * Weigh yourself every morning after using the bathroom. * Use the same scale. * Wear the same amount of clothing. * Write your weight down on a chart. * Call your Primary Care doctor if you gain more than 2-3 pounds in 1-2 days. MEDICATIONS * Use this discharge instruction sheet for medication instructions. * Take your medications at the time your doctor ordered. * Do not skip a dose of your medicines. * If you miss a dose of medicine, take it as soon as possible, but DO NOT DOUBLE A DOSE. * Read your medicine information when you get home. * Know all of the side effects of your medicine. If in doubt, ask your pharmacist * Call your Primary Care doctor's office if you have any side effects. * Be sure all of your doctors know what medicine and herbs you take (including cold, flu, and herbal medicine). Take the following with you to your follow-up doctor appointments: * Weight Chart * Medication List * List of questions Do not drink excessive alcohol, beer or wine. Pending Studies at Discharge: No Stand-Alone Forms: My [facility], Smoking Cessation Medications and DC Order Prescriptions: New furosemide 20 mg Tablet 20 mg PO QAM 30 Days Qty: 30 RF: 1 Continued atorvastatin 20 mg tablet 20 mg PO HS RF: 0 metoprolol succinate 100 mg tablet extended release 24 hr 100 mg PO QAM RF: 0 gabapentin 100 mg capsule 100 mg PO HS RF: 0 ascorbic acid (vitamin C) [Vitamin C] 500 mg Tablet 500 mg PO DAILY RF: 0 calcium carbonate-vitamin D3 [Calcium 500 + D] 500 mg(1,250mg) -200 unit Tablet 1 tab PO BID RF: 0 cholecalciferol (vitamin D3) [Vitamin D3] 25 mcg (1,000 unit) Tablet 1,000 unit PO DAILY RF: 0 aspirin [Aspirin Low Dose] 81 mg Tablet,Delayed Release (Dr/Ec) 81 mg PO DAILY RF: 0 lisinopril 10 mg Tablet 10 mg PO DAILY RF: 0 Discontinued hydrochlorothiazide 12.5 mg capsule 12.5 mg PO Q OTHER DAY RF: 0 Discharge Orders: Discharge Order (Routine); Ordered 04/20/20 Ordered By: Antoine Pettit/Other Patient Handouts: Heart Failure Meds, Heart Failure, Heart Failure Signs of Flare-Up, Heart Failure Tracking Weight, Heart Failure [place], Furosemide tablets Admission Data Admit Date/Time: 04/18/20 11:54 Attending Provider: Antoine Horn Admit Provider: Donn Barbour Primary Care Provider: Brian Blanton Other Providers: Zacarias Vernon ; Donn Barbour ; Marino Montiel Other Interventions: Discharge Summary Assessment (RN) Last Done: 04/20/20 15:24 DC Date/Time DO NOT enter until pt leaves facility: 04/20/20 16:46
--- NOTE | 2020-04-20 16:15 | Cardiology Progress Note ---
Date of Service April 20, 2020 Assessment & Plan (1) Acute HFrEF (heart failure with reduced ejection fraction): History of : Non-ischemic CM Longstanding LBBB Intermittent high grade AV block on Zio monitor 2016 , prompting dual chamber PPM, 2017 echo prepacer, LVEF 45-50%. R > L Pleural effusion Remote breast carcinoma Patient improved with IV diuretic therapy. Agree with transition to furosemide 20 mg daily. Her primary home performance consultant is Dr. Willingham. She underwent dual-chamber permanent pacemaker placement performed by Dr. Randolph in 10/2017 , after having been found to have intermittent high-grade AV block outpatient Zio library monitor. She has a longstanding history of nonischemic cardiomyopathy dating back to 2004 in the setting of left bundle branch block. Her QRS duration on EKG October 2017 138 ms. For pacemaker, LVEF on outpatient echocardiogram is graded to be 45 to 50%, per report which was actually performed by the undersigned. Reviewed her echocardiogram performed this admission [id number] with the images obtained at [facility] in 2017. There has been interval decline with ventricular systolic dysfunction, and per my interpretation, oblique severe left ventricular systolic dysfunction is present. This does not necessarily appear to be due to deleterious effects of RV pacing, as she seems to pace sparsely right ventricle, and predominantly, rate atrial pacing observed. At this time she is stable for discharge to home aspirin 81 mg daily, atorvastatin, and lisinopril 10 mg daily. To hospital dose of hydrochlorothiazide 12.5 mg daily, is to be replaced with furosemide 20 mg daily. She is noted to have bilateral pleural effusions, right greater than left, and a remote history of breast carcinoma. She had been seen by medicine this hospital stay, chronicity of the pleural effusions was present in past imaging studies. Patient declined agnostic thoracentesis this admission. It was felt that clinically, this effusion consistent with congestive heart failure. The patient is overdue for an outpatient device interrogation, device appointment along with follow-up with either Dr Willingham, cardiology specialty PA, or other provider is advised in 1-3 weeks, I will message our office. Subjective Chief complaint: Follow-up shortness of breath Subjective: This is seen in cardiology follow-up by the undersigned today, having previously followed with Dr. Montiel this hospital stay. She states that she is feeling much improved. She has been transitioned to oral furosemide as of this morning. Physical Exam Physical Exam: Temp Pulse Resp BP Pulse Ox 36.8 C 91 H 19 135/82 95 04/20/20 15:24 04/20/20 15:24 04/20/20 15:24 04/20/20 15:24 04/20/20 15:24 Constitutional: WD/WN, vitals as above Respiratory: Auscultation: + diminished lung sounds (Mildly decreased breath sounds in the bases, no rales rhonchi or wheezing) Cardiovascular: Rate/Rhythm: regular rate and regular rhythm Heart Sounds: no murmur Vessels: no JVD Extremities: no edema Gastrointestinal (Abdomen): normal bowel sounds, soft, nontender, no hepatosplenomegaly Neurologic: PERRL, EOMI, accommodation nl, no face palsy, no dysarthria Results & Data Vital Signs (Past 12 Hours) Vital Signs Temp Pulse Pulse Resp BP Pulse Ox 04/20/20 15:24 36.8 C 91 H 19 135/82 95 04/20/20 15:19 36.8 C 91 H 19 135/82 95 04/20/20 12:06 36.6 C 88 18 116/61 95 04/20/20 08:00 87 04/20/20 07:46 36.8 C 84 16 132/72 96 Laboratory Results Comprehensive Metabolic Panel 04/20/20 Range/Units 06:54 Sodium 136 (136-145) mmol/L Potassium 3.8 (3.5-5.1) mmol/L Chloride 99 (98-107) mmol/L Carbon Dioxide 30 (21-32) mmol/L BUN 18 (7-18) mg/dl Creatinine 0.65 (0.6-1.2) mg/dl Glucose 92 (70-99) mg/dl Calcium 8.4 L (8.5-10.1) mg/dl Intake and Output 04/20/20 04/20/20 04/20/20 06:59 14:59 22:59 Intake Total 475 / 475 Output Total 500 / 500 300 / 300 Balance -500 / 495 175 / 175 Intake: Oral 475 / 475 Output: Urine 500 / 500 300 / 300 Other: Weight 62.6 kg 62.6 kg Patient Weight 04/21/20 06:59 Weight 62.6 kg
== END 2020-04-20 16:46 | disposition home or self-care (01) | DRG 291 ==
LOC: ED 07:52 → 2S 11:54 → SUATTDRO 11:54 → 2S 12:41